=== PATIENT | male | born 1980 | race Caucasian/White ===

== ENCOUNTER 2016-05-06 09:14 | Inpatient (IN) | payer OTHER ==
[~2016-05-06] VITALS: Ht 177.8 cm; Wt 73.4 kg
[2016-05-06] VITALS (11 sets, daily range): BP systolic 111–144; BP diastolic 68–94
[2016-05-06] MEDS ORDERED: SODIUM CHLORIDE FLUSH 10ML SYR IVF ONE (10:30)
[2016-05-06 11:05] LABS: ASPARTATE AMINO TRANSFERASE 59 U/L (15-37); BLOOD UREA NITROGEN 15 mg/dL (7-18)
[2016-05-06 11:10] LABS: ACETAMINOPHEN < 2 mcg/mL (10-30)
[2016-05-06 11:17] LABS: HEMOGLOBIN 5.9 g/dL (13.7-18.0)
[2016-05-06 11:18] LABS: DIFF TOTAL CELLS COUNTED 100 CELL DIFF
[2016-05-06 11:40] LABS: VERIFY COUNTS? YES
[2016-05-06 11:42] LABS: ANISOCYTOSIS 1+; POLYCHROMASIA 1+; SPHEROCYTES 1+
[2016-05-06 12:33] LABS: DAU SCREEN DISCLAIMER
[2016-05-06] MEDS ORDERED: SODIUM CHLORIDE 0.9% 1,000ML IVBOLUS ONE (13:00)
[2016-05-06] MEDS ORDERED: SODIUM CHLORIDE FLUSH 10ML SYR IVF PRN (14:00)
[2016-05-06] MEDS: NICOTINE 21 MG/24 HR PATCH.TD24 TD SCH (19:48)
[2016-05-06 23:59] LABS: C-REACTIVE PROTEIN, QUANT 0.35 mg/dL (0.02-0.49)
[2016-05-07] VITALS (11 sets, daily range): BP systolic 100–125; BP diastolic 60–80
[2016-05-07 00:03] LABS: HEMOGLOBIN 6.9 g/dL (13.7-18.0)
[2016-05-07 00:17] LABS: HIV 1&2 ANTIBODY SCREEN Nonreactive (Nonreactive)
[2016-05-07 00:18] LABS: HIV-1 p24 ANTIGEN Nonreactive (Nonreactive)
[2016-05-07 00:31] LABS: DIFF TOTAL CELLS COUNTED 100 CELL DIFF
[2016-05-07 01:05] LABS: ANISOCYTOSIS 1+; HYPOCHROMIA 1+; POLYCHROMASIA 1+; STOMATOCYTES 1+
[2016-05-07 01:06] LABS: POIKILOCYTOSIS 1+
[2016-05-07 01:12] LABS: VERIFY COUNTS? YES
[2016-05-07 05:48] LABS: IMMUNOGLOBULIN A 205 mg/dL (90-386); IMMUNOGLOBULIN G 697 mg/dL (700-1600); IMMUNOGLOBULIN M 65 mg/dL (20-172)
[2016-05-07 05:54] LABS: HEMOGLOBIN 7.2 g/dL (13.7-18.0)
[2016-05-07 05:56] LABS: BLOOD UREA NITROGEN 12 mg/dL (7-18)
[2016-05-07 06:01] LABS: ASPARTATE AMINO TRANSFERASE 49 U/L (15-37)
[2016-05-07 06:33] LABS: DIFF TOTAL CELLS COUNTED 100 CELL DIFF
[2016-05-07 06:35] LABS: POLYCHROMASIA 1+; VERIFY COUNTS? YES
[2016-05-07 06:37] LABS: ANISOCYTOSIS 2+; HYPOCHROMIA 1+
[2016-05-07 06:38] LABS: SPHEROCYTES 1+
[2016-05-07 06:39] LABS: MICROCYTOSIS 1+
[2016-05-07] MEDS ORDERED: LIDOCAINE 1%, 20ML ONE (10:01)
[2016-05-07] MEDS ORDERED: NALOXONE 1 MG/ML, 2ML ONE (10:08)
[2016-05-07] MEDS ORDERED: MIDAZOLAM 1 MG/ML, 5ML ONE (10:08)
[2016-05-07] MEDS ORDERED: FENTANYL PF 100 MCG/2ML ONE (10:08)
[2016-05-07] MEDS: NICOTINE 21 MG/24 HR PATCH.TD24 TD SCH (21:32)
[2016-05-08 02:22] VITALS: BP 97/61
[2016-05-08 05:07] LABS: HEMOGLOBIN 9.8 g/dL (13.7-18.0)
[2016-05-08 05:39] LABS: DIFF TOTAL CELLS COUNTED 100 CELL DIFF
[2016-05-08 05:45] LABS: VERIFY COUNTS? YES
[2016-05-08 05:46] LABS: ANISOCYTOSIS 2+; MICROCYTOSIS 1+; POLYCHROMASIA 1+; SPHEROCYTES 1+
[2016-05-08 07:41] VITALS: BP 98/67
[2016-05-08 12:32] VITALS: BP 121/77
[2016-05-08] MEDS: ALLOPURINOL 300 MG TABLET PO SCH (17:27)
[2016-05-08] MEDS: FLUCONAZOLE 100 MG TABLET PO SCH (17:27)
[2016-05-08] MEDS: SODIUM CHLORIDE 0.9% 1,000 ML IV SCH (17:28)
[2016-05-08 19:09] VITALS: BP 123/84
[2016-05-08] MEDS: CIPROFLOXACIN 500 MG TABLET PO SCH (19:55)
[2016-05-08] MEDS: ACYCLOVIR 400 MG TABLET PO SCH (19:55)
[2016-05-08] MEDS: NICOTINE 21 MG/24 HR PATCH.TD24 TD SCH (19:56)
[2016-05-09] MEDS: SODIUM CHLORIDE 0.9% 1,000 ML IV SCH ×3 (00:21→17:54)
[2016-05-09 01:16] LABS: HEPATITIS B SURFACE AG SCREEN Negative (Negative)
[2016-05-09 02:00] VITALS: BP 106/64
[2016-05-09 06:24] LABS: BLOOD UREA NITROGEN 12 mg/dL (7-18)
[2016-05-09 06:25] LABS: HEMOGLOBIN 9.8 g/dL (13.7-18.0)
[2016-05-09 06:27] LABS: ASPARTATE AMINO TRANSFERASE 25 U/L (15-37)
[2016-05-09 06:43] LABS: DIFF TOTAL CELLS COUNTED 100 CELL DIFF
[2016-05-09 06:48] LABS: VERIFY COUNTS? YES
[2016-05-09 06:49] LABS: ANISOCYTOSIS 2+; MICROCYTOSIS 1+; POLYCHROMASIA 1+
[2016-05-09 06:51] LABS: SPHEROCYTES 1+
[2016-05-09 06:55] VITALS: BP 116/84
[2016-05-09] MEDS: CIPROFLOXACIN 500 MG TABLET PO SCH ×2 (09:10→21:21)
[2016-05-09] MEDS: ACYCLOVIR 400 MG TABLET PO SCH ×2 (09:10→21:21)
[2016-05-09 13:00] VITALS: BP 119/78
[2016-05-09] MEDS ORDERED: LORazepam 2 MG/ML, 1ML ONE (14:47)
[2016-05-09] MEDS ORDERED: LORazepam 2 MG/ML, 1ML IVPush ONE (15:00)
[2016-05-09] MEDS ORDERED: GADOBUTROL 7.5 MMOL/7.5 ML PFS ONE (16:27)
[2016-05-09] MEDS: ALLOPURINOL 300 MG TABLET PO SCH (17:54)
[2016-05-09] MEDS: FLUCONAZOLE 100 MG TABLET PO SCH (17:54)
[2016-05-09 19:30] VITALS: BP 118/74
[2016-05-09] MEDS: NICOTINE 21 MG/24 HR PATCH.TD24 TD SCH (21:21)
[2016-05-10 01:21] VITALS: BP 105/66
[2016-05-10] MEDS: SODIUM CHLORIDE 0.9% 1,000 ML IV SCH ×3 (01:48→16:27)
[2016-05-10 05:53] LABS: HEMOGLOBIN 9.4 g/dL (13.7-18.0)
[2016-05-10 06:29] LABS: ASPARTATE AMINO TRANSFERASE 21 U/L (15-37); BLOOD UREA NITROGEN 13 mg/dL (7-18)
[2016-05-10 06:35] LABS: DIFF TOTAL CELLS COUNTED 100 CELL DIFF
[2016-05-10 06:44] LABS: VERIFY COUNTS? YES
[2016-05-10 06:46] LABS: ANISOCYTOSIS 2+; MICROCYTOSIS 1+; POLYCHROMASIA 1+; SPHEROCYTES 1+
[2016-05-10 07:10] VITALS: BP 103/67
[2016-05-10] MEDS: CIPROFLOXACIN 500 MG TABLET PO SCH ×2 (10:04→21:36)
[2016-05-10] MEDS: ACYCLOVIR 400 MG TABLET PO SCH ×2 (10:04→21:35)
[2016-05-10 13:25] VITALS: BP 110/76
[2016-05-10] MEDS ORDERED: FOSAPREPITANT 150 MG in SODIUM CHLORIDE 0.9% 145 ML IV ONE (15:30)
[2016-05-10] MEDS: ONDANSETRON 16 MG, DEXAMETHASONE 12 MG in DEXTROSE 5% 50 ML IV SCH (17:26)
[2016-05-10] MEDS: ALLOPURINOL 300 MG TABLET PO SCH (17:27)
[2016-05-10] MEDS: FLUCONAZOLE 100 MG TABLET PO SCH (17:27)
[2016-05-10] MEDS: IDARUBICIN IV SCH (18:37)
[2016-05-10] MEDS: SODIUM CHLORIDE 0.9% IV SCH ×2 (18:37→19:15)
[2016-05-10] MEDS: CYTARABINE IV SCH (19:15)
[2016-05-10 19:55] VITALS: BP 116/73
[2016-05-10] MEDS: NICOTINE 21 MG/24 HR PATCH.TD24 TD SCH (21:36)
[2016-05-11] MEDS: SODIUM CHLORIDE 0.9% 1,000 ML IV SCH ×3 (01:47→18:48)
[2016-05-11 03:39] VITALS: BP 105/73
[2016-05-11 03:40] LABS: ASPARTATE AMINO TRANSFERASE 21 U/L (15-37); BLOOD UREA NITROGEN 17 mg/dL (7-18)
[2016-05-11 04:09] LABS: HEMOGLOBIN 9.5 g/dL (13.7-18.0)
[2016-05-11 04:12] LABS: DIFF TOTAL CELLS COUNTED 100 CELL DIFF
[2016-05-11 04:17] LABS: VERIFY COUNTS? YES
[2016-05-11 04:18] LABS: ANISOCYTOSIS 2+; MICROCYTOSIS 1+; POLYCHROMASIA 1+; SPHEROCYTES 1+
[2016-05-11 07:26] VITALS: BP 98/63
[2016-05-11] MEDS: ACYCLOVIR 400 MG TABLET PO SCH ×2 (09:12→21:39)
[2016-05-11] MEDS: CIPROFLOXACIN 500 MG TABLET PO SCH ×2 (09:13→21:40)
[2016-05-11 13:19] VITALS: BP 108/74
[2016-05-11] MEDS: ONDANSETRON 16 MG, DEXAMETHASONE 12 MG in DEXTROSE 5% 50 ML IV SCH (16:27)
[2016-05-11] MEDS: FLUCONAZOLE 100 MG TABLET PO SCH (18:59)
[2016-05-11] MEDS: ALLOPURINOL 300 MG TABLET PO SCH (18:59)
[2016-05-11] MEDS: IDARUBICIN IV SCH (19:01)
[2016-05-11] MEDS: SODIUM CHLORIDE 0.9% IV SCH ×2 (19:01→19:40)
[2016-05-11 19:06] LABS: ANA DIRECT Negative (Negative); COMPLEMENT C3 100 mg/dL (82-167); COMPLEMENT C4 22 mg/dL (14-44); INTERMYOFIBRILLAR AB Negative (Neg:<1:20); MITOCHONDRIAL (M2) AB 2.1 Units (0.0-20.0); RA LATEX TURBIDITY <10.0 IU/mL (0.0-13.9); SARCOLEMMA AB Negative (Neg:<1:20); SJOGREN'S SS-A AB <0.2 AI (0.0-0.9); STRIATION AB Negative (Neg:<1:40); THYROID PEROXIDASE (TPO) AB 27 IU/mL (0-34)
[2016-05-11] MEDS: CYTARABINE IV SCH (19:40)
[2016-05-11 20:03] VITALS: BP 106/67
[2016-05-11] MEDS: AMOXICILLIN 500 MG CAPSULE PO SCH (21:39)
[2016-05-11] MEDS: NICOTINE 21 MG/24 HR PATCH.TD24 TD SCH (21:40)
[2016-05-11] MEDS ORDERED: BISACODYL 5 MG EC TABLET PO PRN (22:30)
[2016-05-12] MEDS: SODIUM CHLORIDE 0.9% 1,000 ML IV SCH ×3 (02:58→18:51)
[2016-05-12 03:31] VITALS: BP 109/71
[2016-05-12 03:48] LABS: HEMOGLOBIN 9.1 g/dL (13.7-18.0)
[2016-05-12 03:57] LABS: ASPARTATE AMINO TRANSFERASE 21 U/L (15-37); BLOOD UREA NITROGEN 18 mg/dL (7-18)
[2016-05-12 04:15] LABS: DIFF TOTAL CELLS COUNTED 100 CELL DIFF
[2016-05-12 04:18] LABS: VERIFY COUNTS? YES
[2016-05-12 04:19] LABS: ANISOCYTOSIS 2+; MICROCYTOSIS 1+; OVALOCYTES 1+; POLYCHROMASIA 1+
[2016-05-12 08:15] VITALS: BP 113/66
[2016-05-12] MEDS: AMOXICILLIN 500 MG CAPSULE PO SCH (08:49)
[2016-05-12] MEDS: ACYCLOVIR 400 MG TABLET PO SCH ×2 (08:50→21:59)
[2016-05-12] MEDS: SENNA/DOCUSATE TABLET PO SCH ×2 (08:50→21:00)
[2016-05-12] MEDS: CIPROFLOXACIN 500 MG TABLET PO SCH ×2 (08:50→22:00)
[2016-05-12 14:53] VITALS: BP 117/71
[2016-05-12] MEDS: CLINDAMYCIN 300 MG CAPSULE PO SCH (17:30)
[2016-05-12] MEDS: FLUCONAZOLE 100 MG TABLET PO SCH (18:06)
[2016-05-12] MEDS: PANTOPROZOLE 40MG TABLET PO SCH (18:07)
[2016-05-12] MEDS: ALLOPURINOL 300 MG TABLET PO SCH (18:07)
[2016-05-12 19:00] VITALS: BP 123/85
[2016-05-12] MEDS: ONDANSETRON 16 MG, DEXAMETHASONE 12 MG in DEXTROSE 5% 50 ML IV SCH (19:36)
[2016-05-12] MEDS: SODIUM CHLORIDE 0.9% IV SCH ×2 (21:48→22:19)
[2016-05-12] MEDS: IDARUBICIN IV SCH (21:48)
[2016-05-12] MEDS: NICOTINE 21 MG/24 HR PATCH.TD24 TD SCH (22:01)
[2016-05-12] MEDS: CYTARABINE IV SCH (22:19)
[2016-05-13 02:37] VITALS: BP 122/85
[2016-05-13 03:34] LABS: HEMOGLOBIN 7.8 g/dL (13.7-18.0)
[2016-05-13 03:42] LABS: ASPARTATE AMINO TRANSFERASE 18 U/L (15-37); BLOOD UREA NITROGEN 23 mg/dL (7-18)
[2016-05-13 03:51] LABS: DIFF TOTAL CELLS COUNTED 100 CELL DIFF
[2016-05-13 03:57] LABS: ANISOCYTOSIS 2+; OVALOCYTES 1+; POIKILOCYTOSIS 1+; POLYCHROMASIA 1+
[2016-05-13 03:58] LABS: MICROCYTOSIS 1+
[2016-05-13 03:59] LABS: SPHEROCYTES 1+; VERIFY COUNTS? YES
[2016-05-13] MEDS: SODIUM CHLORIDE 0.9% 1,000 ML IV SCH ×3 (04:45→20:00)
[2016-05-13] MEDS: CLINDAMYCIN 300 MG CAPSULE PO SCH ×2 (05:30→17:30)
[2016-05-13 06:42] VITALS: BP 102/64
[2016-05-13] MEDS: CIPROFLOXACIN 500 MG TABLET PO SCH ×2 (08:43→21:17)
[2016-05-13] MEDS: SENNA/DOCUSATE TABLET PO SCH ×3 (08:43→21:17)
[2016-05-13] MEDS: PANTOPROZOLE 40MG TABLET PO SCH (08:43)
[2016-05-13] MEDS: ACYCLOVIR 400 MG TABLET PO SCH ×2 (08:44→21:17)
[2016-05-13 13:00] VITALS: BP 105/66
[2016-05-13] MEDS: ONDANSETRON 16 MG, DEXAMETHASONE 12 MG in DEXTROSE 5% 50 ML IV SCH (16:16)
[2016-05-13] MEDS: ALLOPURINOL 300 MG TABLET PO SCH (17:25)
[2016-05-13] MEDS: FLUCONAZOLE 100 MG TABLET PO SCH (17:25)
[2016-05-13 18:07] LABS: HERPES SIMPLEX VIRUS-1 DNA PCR Negative (Negative); HERPES SIMPLEX VIRUS-2 DNA PCR Negative (Negative)
[2016-05-13 19:20] VITALS: BP 107/61
[2016-05-13] MEDS: NICOTINE 21 MG/24 HR PATCH.TD24 TD SCH (22:54)
[2016-05-13] MEDS: CYTARABINE IV SCH (23:42)
[2016-05-13] MEDS: SODIUM CHLORIDE 0.9% IV SCH (23:42)
[2016-05-14 02:00] VITALS: BP 112/65
[2016-05-14 04:31] LABS: HEMOGLOBIN 7.3 g/dL (13.7-18.0)
[2016-05-14 04:36] LABS: BLOOD UREA NITROGEN 22 mg/dL (7-18)
[2016-05-14 04:40] LABS: ASPARTATE AMINO TRANSFERASE 12 U/L (15-37)
[2016-05-14 04:50] LABS: DIFF TOTAL CELLS COUNTED 100 CELL DIFF
[2016-05-14 04:54] LABS: ANISOCYTOSIS 2+
[2016-05-14 04:55] LABS: MICROCYTOSIS 1+; OVALOCYTES 1+; POIKILOCYTOSIS 1+; POLYCHROMASIA 1+; SPHEROCYTES 1+
[2016-05-14 04:57] LABS: VERIFY COUNTS? YES
[2016-05-14] MEDS: CLINDAMYCIN 300 MG CAPSULE PO SCH ×2 (05:30→17:30)
[2016-05-14] MEDS: SODIUM CHLORIDE 0.9% 1,000 ML IV SCH (05:30)
[2016-05-14 08:31] VITALS: BP 108/63
[2016-05-14] MEDS: SENNA/DOCUSATE TABLET PO SCH ×2 (09:00→21:00)
[2016-05-14] MEDS: CIPROFLOXACIN 500 MG TABLET PO SCH ×2 (09:16→21:27)
[2016-05-14] MEDS: ACYCLOVIR 400 MG TABLET PO SCH ×2 (09:16→21:26)
[2016-05-14] MEDS: PANTOPROZOLE 40MG TABLET PO SCH (09:16)
[2016-05-14 14:00] VITALS: BP 120/66
[2016-05-14] MEDS ORDERED: SODIUM CHLORIDE 0.9% 1,000 ML IV SCH (17:00)
[2016-05-14] MEDS: ONDANSETRON 16 MG, DEXAMETHASONE 12 MG in DEXTROSE 5% 50 ML IV SCH (18:16)
[2016-05-14] MEDS: ALLOPURINOL 300 MG TABLET PO SCH (19:28)
[2016-05-14] MEDS: FLUCONAZOLE 100 MG TABLET PO SCH (19:29)
[2016-05-14 19:52] VITALS: BP 109/68
[2016-05-14] MEDS: NICOTINE 21 MG/24 HR PATCH.TD24 TD SCH (21:26)
[2016-05-14] MEDS: SODIUM CHLORIDE 0.9% IV SCH (23:48)
[2016-05-14] MEDS: CYTARABINE IV SCH (23:48)
[2016-05-15] VITALS (12 sets, daily range): BP systolic 103–137; BP diastolic 60–83
[2016-05-15] MEDS: CLINDAMYCIN 300 MG CAPSULE PO SCH ×2 (04:57→17:30)
[2016-05-15 05:59] LABS: HEMOGLOBIN 6.6 g/dL (13.7-18.0)
[2016-05-15 06:00] LABS: ASPARTATE AMINO TRANSFERASE 21 U/L (15-37); BLOOD UREA NITROGEN 21 mg/dL (7-18)
[2016-05-15 06:40] LABS: DIFF TOTAL CELLS COUNTED 100 CELL DIFF
[2016-05-15 06:47] LABS: ANISOCYTOSIS 2+; VERIFY COUNTS? YES
[2016-05-15 06:48] LABS: MICROCYTOSIS 1+; OVALOCYTES 1+; POIKILOCYTOSIS 1+
[2016-05-15] MEDS ORDERED: DIPHENHYDRAMINE 50 MG CAPSULE PO PRN (07:00)
[2016-05-15] MEDS ORDERED: ACETAMINOPHEN 325 MG TABLET PO ONE (07:00)
[2016-05-15] MEDS: PANTOPROZOLE 40MG TABLET PO SCH (08:29)
[2016-05-15] MEDS: SENNA/DOCUSATE TABLET PO SCH ×2 (08:29→19:35)
[2016-05-15] MEDS: CIPROFLOXACIN 500 MG TABLET PO SCH ×2 (08:29→21:17)
[2016-05-15] MEDS: ACYCLOVIR 400 MG TABLET PO SCH ×2 (08:29→21:17)
[2016-05-15] MEDS: DIPHENHYDRAMINE 50 MG CAPSULE PO PRN (08:34)
[2016-05-15] MEDS ORDERED: PLEASE ENTER ALLERGIES MC SCH ×2 (12:30)
[2016-05-15] MEDS: FLUCONAZOLE 100 MG TABLET PO SCH (17:40)
[2016-05-15] MEDS: ALLOPURINOL 300 MG TABLET PO SCH (17:43)
[2016-05-15] MEDS: ONDANSETRON 16 MG, DEXAMETHASONE 12 MG in DEXTROSE 5% 50 ML IV SCH (18:24)
[2016-05-15] MEDS: NICOTINE 21 MG/24 HR PATCH.TD24 TD SCH (21:17)
[2016-05-16] MEDS: SODIUM CHLORIDE 0.9% IV SCH (00:15)
[2016-05-16] MEDS: CYTARABINE IV SCH (00:15)
[2016-05-16 04:47] VITALS: BP 109/66
[2016-05-16] MEDS: CLINDAMYCIN 300 MG CAPSULE PO SCH ×2 (05:06→17:30)
[2016-05-16 05:49] LABS: BLOOD UREA NITROGEN 20 mg/dL (7-18)
[2016-05-16 05:55] LABS: ASPARTATE AMINO TRANSFERASE 48 U/L (15-37); HEMOGLOBIN 8.2 g/dL (13.7-18.0)
[2016-05-16 06:33] LABS: DIFF TOTAL CELLS COUNTED 100 CELL DIFF
[2016-05-16 06:36] LABS: VERIFY COUNTS? YES
[2016-05-16 06:37] LABS: ANISOCYTOSIS 1+
[2016-05-16 06:38] LABS: MICROCYTOSIS 1+; OVALOCYTES 1+
[2016-05-16] MEDS: SENNA/DOCUSATE TABLET PO SCH ×2 (08:04→20:35)
[2016-05-16] MEDS: ACYCLOVIR 400 MG TABLET PO SCH ×2 (08:04→20:35)
[2016-05-16] MEDS: CIPROFLOXACIN 500 MG TABLET PO SCH ×2 (08:04→20:34)
[2016-05-16] MEDS: PANTOPROZOLE 40MG TABLET PO SCH (08:04)
[2016-05-16 08:25] VITALS: BP 128/77
[2016-05-16 15:08] VITALS: BP 114/69
[2016-05-16] MEDS: ALLOPURINOL 300 MG TABLET PO SCH (18:58)
[2016-05-16] MEDS: FLUCONAZOLE 100 MG TABLET PO SCH (19:00)
[2016-05-16 20:03] VITALS: BP 123/81
[2016-05-16] MEDS: LOPERAMIDE 2 MG CAPSULE PO PRN (20:14)
[2016-05-16] MEDS: NICOTINE 21 MG/24 HR PATCH.TD24 TD SCH (20:34)
[2016-05-16] MEDS: MORPHINE SULFATE 4 MG/ML, 1ML IVPush PRN (22:21)
[2016-05-16] MEDS: ONDANSETRON 16 MG, DEXAMETHASONE 12 MG in DEXTROSE 5% 50 ML IV SCH (22:41)
[2016-05-17] VITALS (7 sets, daily range): BP systolic 98–119; BP diastolic 56–77
[2016-05-17] MEDS: SODIUM CHLORIDE 0.9% IV SCH (00:50)
[2016-05-17] MEDS: CYTARABINE IV SCH (00:50)
[2016-05-17] MEDS: MORPHINE SULFATE 4 MG/ML, 1ML IVPush PRN (01:40)
[2016-05-17] MEDS: LOPERAMIDE 2 MG CAPSULE PO PRN ×2 (01:40→18:38)
[2016-05-17] MEDS: CLINDAMYCIN 300 MG CAPSULE PO SCH (05:22)
[2016-05-17 06:12] LABS: ASPARTATE AMINO TRANSFERASE 28 U/L (15-37); BLOOD UREA NITROGEN 21 mg/dL (7-18)
[2016-05-17 06:20] LABS: HEMOGLOBIN 7.9 g/dL (13.7-18.0)
[2016-05-17 07:30] LABS: DIFF TOTAL CELLS COUNTED 100 CELL DIFF
[2016-05-17 07:32] LABS: VERIFY COUNTS? YES
[2016-05-17 07:33] LABS: ANISOCYTOSIS 1+
[2016-05-17] MEDS: SENNA/DOCUSATE TABLET PO SCH ×2 (09:00→21:00)
[2016-05-17] MEDS: PANTOPROZOLE 40MG TABLET PO SCH (10:10)
[2016-05-17] MEDS: CIPROFLOXACIN 500 MG TABLET PO SCH ×2 (10:11→21:02)
[2016-05-17] MEDS: ACYCLOVIR 400 MG TABLET PO SCH ×2 (10:11→21:02)
[2016-05-17] MEDS: DIPHENHYDRAMINE 50 MG CAPSULE PO PRN (11:54)
[2016-05-17] MEDS: ACETAMINOPHEN 325 MG TABLET PO PRN (11:55)
[2016-05-17] MEDS: LACTOBACILLUS CHEW TABLET PO SCH ×3 (12:01→21:03)
[2016-05-17] MEDS: HYDROcodone/APAP 5/325 TABLET PO PRN ×2 (17:00→18:38)
[2016-05-17] MEDS: ALLOPURINOL 300 MG TABLET PO SCH (17:01)
[2016-05-17] MEDS: FLUCONAZOLE 100 MG TABLET PO SCH (17:01)
[2016-05-17] MEDS: NICOTINE 21 MG/24 HR PATCH.TD24 TD SCH (21:06)
[2016-05-18 02:30] VITALS: BP 115/68
[2016-05-18] MEDS: LOPERAMIDE 2 MG CAPSULE PO PRN (05:35)
[2016-05-18] MEDS: LACTOBACILLUS CHEW TABLET PO SCH ×4 (05:35→20:57)
[2016-05-18 05:59] LABS: ASPARTATE AMINO TRANSFERASE 70 U/L (15-37); BLOOD UREA NITROGEN 23 mg/dL (7-18)
[2016-05-18 06:10] LABS: HEMOGLOBIN 8.1 g/dL (13.7-18.0)
[2016-05-18 06:50] LABS: DIFF TOTAL CELLS COUNTED 100 CELL DIFF
[2016-05-18 06:56] LABS: ANISOCYTOSIS 1+
[2016-05-18 06:58] LABS: VERIFY COUNTS? YES
[2016-05-18] MEDS: HYDROcodone/APAP 5/325 TABLET PO PRN ×3 (07:23→20:57)
[2016-05-18] MEDS: PANTOPROZOLE 40MG TABLET PO SCH (07:45)
[2016-05-18] MEDS: CIPROFLOXACIN 500 MG TABLET PO SCH ×2 (07:46→20:57)
[2016-05-18] MEDS: SENNA/DOCUSATE TABLET PO SCH ×2 (07:46→22:15)
[2016-05-18] MEDS: ACYCLOVIR 400 MG TABLET PO SCH ×2 (07:47→20:57)
[2016-05-18 07:53] VITALS: BP 122/86
[2016-05-18 14:00] VITALS: BP 106/70
[2016-05-18] MEDS: ALLOPURINOL 300 MG TABLET PO SCH (17:38)
[2016-05-18] MEDS: FLUCONAZOLE 100 MG TABLET PO SCH (17:38)
[2016-05-18 20:40] VITALS: BP 113/76
[2016-05-18] MEDS: NICOTINE 21 MG/24 HR PATCH.TD24 TD SCH (20:57)
[2016-05-19] VITALS (16 sets, daily range): BP systolic 104–133; BP diastolic 66–86
[2016-05-19] MEDS: HYDROcodone/APAP 5/325 TABLET PO PRN (03:50)
[2016-05-19 04:27] LABS: HEMOGLOBIN 8.9 g/dL (13.7-18.0)
[2016-05-19 04:34] LABS: DIFF TOTAL CELLS COUNTED 100 CELL DIFF
[2016-05-19 04:38] LABS: ASPARTATE AMINO TRANSFERASE 45 U/L (15-37); BLOOD UREA NITROGEN 30 mg/dL (7-18)
[2016-05-19 04:54] LABS: VERIFY COUNTS? YES
[2016-05-19 04:55] LABS: ANISOCYTOSIS 1+
[2016-05-19 04:56] LABS: POIKILOCYTOSIS 1+
[2016-05-19] MEDS: LACTOBACILLUS CHEW TABLET PO SCH ×4 (04:57→20:44)
[2016-05-19] MEDS: CIPROFLOXACIN 500 MG TABLET PO SCH ×2 (08:27→20:44)
[2016-05-19] MEDS: ACYCLOVIR 400 MG TABLET PO SCH ×2 (08:27→20:44)
[2016-05-19] MEDS: SENNA/DOCUSATE TABLET PO SCH ×2 (08:28→20:47)
[2016-05-19] MEDS ORDERED: PANTOPRAZOLE 40 MG IV IVPush SCH (09:00)
[2016-05-19] MEDS: DIPHENHYDRAMINE 50 MG CAPSULE PO PRN ×2 (09:16→17:47)
[2016-05-19] MEDS: ACETAMINOPHEN 325 MG TABLET PO PRN ×2 (09:16→17:47)
[2016-05-19] MEDS: OXYcodone IR 5MG TABLET PO PRN ×4 (09:16→20:59)
[2016-05-19 10:50] LABS: DIFF TOTAL CELLS COUNTED 100 CELL DIFF
[2016-05-19 10:54] LABS: ANISOCYTOSIS 1+; VERIFY COUNTS? YES
[2016-05-19] MEDS: ALLOPURINOL 300 MG TABLET PO SCH (17:00)
[2016-05-19] MEDS: FLUCONAZOLE 100 MG TABLET PO SCH (17:00)
[2016-05-19] MEDS: METRONIDAZOLE PMX 500MG/100ML 100 ML IV SCH (17:00)
[2016-05-19 20:35] LABS: HEMOGLOBIN 7.8 g/dL (13.7-18.0)
[2016-05-19] MEDS: NICOTINE 21 MG/24 HR PATCH.TD24 TD SCH (20:44)
[2016-05-19 21:36] LABS: DIFF TOTAL CELLS COUNTED 100 CELL DIFF
[2016-05-19 21:42] LABS: ANISOCYTOSIS 1+; VERIFY COUNTS? YES
[2016-05-20] VITALS (10 sets, daily range): BP systolic 107–128; BP diastolic 64–84
[2016-05-20] MEDS: METRONIDAZOLE PMX 500MG/100ML 100 ML IV SCH ×2 (01:12→08:23)
[2016-05-20] MEDS: OXYcodone IR 5MG TABLET PO PRN ×4 (04:34→20:03)
[2016-05-20 05:06] LABS: HEMOGLOBIN 8.5 g/dL (13.7-18.0)
[2016-05-20 05:12] LABS: BLOOD UREA NITROGEN 19 mg/dL (7-18)
[2016-05-20 05:16] LABS: ASPARTATE AMINO TRANSFERASE 33 U/L (15-37)
[2016-05-20] MEDS: DIPHENHYDRAMINE 50 MG CAPSULE PO PRN (05:26)
[2016-05-20] MEDS: LACTOBACILLUS CHEW TABLET PO SCH ×4 (06:32→20:04)
[2016-05-20] MEDS: CIPROFLOXACIN 500 MG TABLET PO SCH (08:23)
[2016-05-20] MEDS: ACYCLOVIR 400 MG TABLET PO SCH ×2 (08:23→20:04)
[2016-05-20] MEDS: SENNA/DOCUSATE TABLET PO SCH ×3 (08:23→20:08)
[2016-05-20] MEDS: PANTOPROZOLE 40MG TABLET PO SCH (08:23)
[2016-05-20] MEDS: MEROPENEM 1 GM in SODIUM CHLORIDE 0.9% 100 ML IV SCH ×2 (10:24→16:50)
[2016-05-20] MEDS: FLUCONAZOLE 400 MG/200 ML 200 ML IV SCH (12:22)
[2016-05-20 12:52] LABS: HEMOGLOBIN 8.1 g/dL (13.7-18.0)
[2016-05-20] MEDS: ALLOPURINOL 300 MG TABLET PO SCH (16:28)
[2016-05-20] MEDS: NICOTINE 21 MG/24 HR PATCH.TD24 TD SCH (20:04)
[2016-05-20 20:59] LABS: DIFF TOTAL CELLS COUNTED 100 CELL DIFF
[2016-05-20 21:04] LABS: ANISOCYTOSIS 1+
[2016-05-20 21:05] LABS: VERIFY COUNTS? YES
[2016-05-21] VITALS (10 sets, daily range): BP systolic 105–119; BP diastolic 66–79
[2016-05-21] MEDS: MEROPENEM 1 GM in SODIUM CHLORIDE 0.9% 100 ML IV SCH ×3 (02:08→18:30)
[2016-05-21] MEDS: OXYcodone IR 5MG TABLET PO PRN ×5 (02:09→20:05)
[2016-05-21] MEDS: LACTOBACILLUS CHEW TABLET PO SCH ×4 (05:06→20:05)
[2016-05-21 05:25] LABS: HEMOGLOBIN 7.5 g/dL (13.7-18.0)
[2016-05-21 05:32] LABS: BLOOD UREA NITROGEN 14 mg/dL (7-18)
[2016-05-21 05:39] LABS: ASPARTATE AMINO TRANSFERASE 17 U/L (15-37)
[2016-05-21 05:54] LABS: DIFF TOTAL CELLS COUNTED 100 CELL DIFF
[2016-05-21 05:59] LABS: ANISOCYTOSIS 1+; VERIFY COUNTS? YES
[2016-05-21] MEDS: ONDANSETRON 2MG/ML, 2ML IVP PRN ×2 (08:50→15:52)
[2016-05-21] MEDS: PANTOPROZOLE 40MG TABLET PO SCH (08:50)
[2016-05-21] MEDS: ACYCLOVIR 400 MG TABLET PO SCH ×2 (08:50→20:05)
[2016-05-21] MEDS: HYDROCORTISONE 100 MG INJ. IVPush SCH (08:51)
[2016-05-21] MEDS: DIPHENHYDRAMINE 50 MG CAPSULE PO PRN (08:51)
[2016-05-21] MEDS: SENNA/DOCUSATE TABLET PO SCH ×2 (08:51→19:52)
[2016-05-21] MEDS: ACETAMINOPHEN 325 MG TABLET PO PRN (08:51)
[2016-05-21] MEDS: ALLOPURINOL 300 MG TABLET PO SCH (16:16)
[2016-05-21] MEDS: FLUCONAZOLE 400 MG/200 ML 200 ML IV SCH (16:17)
[2016-05-21] MEDS: NICOTINE 21 MG/24 HR PATCH.TD24 TD SCH (20:05)
[2016-05-21 21:46] LABS: HEMOGLOBIN 8.5 g/dL (13.7-18.0)
[2016-05-21 22:19] LABS: DIFF TOTAL CELLS COUNTED 100 CELL DIFF
[2016-05-21 22:29] LABS: ANISOCYTOSIS 1+; VERIFY COUNTS? YES
[2016-05-22] VITALS (10 sets, daily range): BP systolic 104–118; BP diastolic 72–80
[2016-05-22] MEDS: MEROPENEM 1 GM in SODIUM CHLORIDE 0.9% 100 ML IV SCH ×3 (01:53→17:09)
[2016-05-22] MEDS: ONDANSETRON 2MG/ML, 2ML IVP PRN ×3 (05:29→18:17)
[2016-05-22] MEDS: LACTOBACILLUS CHEW TABLET PO SCH ×4 (05:29→21:55)
[2016-05-22] MEDS: OXYcodone IR 5MG TABLET PO PRN ×5 (05:29→22:43)
[2016-05-22] MEDS: ACYCLOVIR 400 MG TABLET PO SCH ×2 (08:50→21:55)
[2016-05-22] MEDS: SENNA/DOCUSATE TABLET PO SCH ×2 (08:50→21:00)
[2016-05-22] MEDS: PANTOPROZOLE 40MG TABLET PO SCH (08:50)
[2016-05-22 09:53] LABS: ASPARTATE AMINO TRANSFERASE 27 U/L (15-37); BLOOD UREA NITROGEN 17 mg/dL (7-18)
[2016-05-22 10:33] LABS: HEMOGLOBIN 8.8 g/dL (13.7-18.0)
[2016-05-22 10:39] LABS: ANISOCYTOSIS 1+; DIFF TOTAL CELLS COUNTED 50 CELL DIFFERENTIAL; VERIFY COUNTS? YES
[2016-05-22] MEDS: FLUCONAZOLE 400 MG/200 ML 200 ML IV SCH (12:07)
[2016-05-22] MEDS: ALLOPURINOL 300 MG TABLET PO SCH (16:02)
[2016-05-22 17:57] LABS: HEMOGLOBIN 8.6 g/dL (13.7-18.0)
[2016-05-22] MEDS: NICOTINE 21 MG/24 HR PATCH.TD24 TD SCH (21:55)
[2016-05-22] MEDS: ACETAMINOPHEN 325 MG TABLET PO PRN (21:55)
[2016-05-22] MEDS: DIPHENHYDRAMINE 50 MG CAPSULE PO PRN (21:55)
[2016-05-23] MEDS: MEROPENEM 1 GM in SODIUM CHLORIDE 0.9% 100 ML IV SCH ×3 (01:16→16:35)
[2016-05-23 05:07] VITALS: BP 108/69
[2016-05-23] MEDS: LACTOBACILLUS CHEW TABLET PO SCH ×4 (05:10→21:36)
[2016-05-23 06:58] LABS: DIFF TOTAL CELLS COUNTED 100 CELL DIFF
[2016-05-23 07:01] LABS: ANISOCYTOSIS 1+; VERIFY COUNTS? YES
[2016-05-23] MEDS: ONDANSETRON 2MG/ML, 2ML IVP PRN (07:14)
[2016-05-23] MEDS: OXYcodone IR 5MG TABLET PO PRN ×2 (07:14→14:57)
[2016-05-23] MEDS: ACYCLOVIR 400 MG TABLET PO SCH ×2 (08:00→21:36)
[2016-05-23] MEDS: PANTOPROZOLE 40MG TABLET PO SCH (08:00)
[2016-05-23] MEDS: SENNA/DOCUSATE TABLET PO SCH ×3 (08:01→21:36)
[2016-05-23 08:37] VITALS: BP 122/80
[2016-05-23 12:56] VITALS: BP 125/89
[2016-05-23] MEDS: FLUCONAZOLE 400 MG/200 ML 200 ML IV SCH (13:27)
[2016-05-23] MEDS: ALLOPURINOL 300 MG TABLET PO SCH (16:35)
[2016-05-23 20:32] VITALS: BP 110/78
[2016-05-23] MEDS: NICOTINE 21 MG/24 HR PATCH.TD24 TD SCH (21:38)
[2016-05-24] VITALS (7 sets, daily range): BP systolic 101–111; BP diastolic 67–81
[2016-05-24] MEDS: MEROPENEM 1 GM in SODIUM CHLORIDE 0.9% 100 ML IV SCH ×3 (02:32→17:44)
[2016-05-24] MEDS: OXYcodone IR 5MG TABLET PO PRN ×4 (06:22→20:34)
[2016-05-24] MEDS: LACTOBACILLUS CHEW TABLET PO SCH ×4 (06:22→20:35)
[2016-05-24] MEDS: PANTOPROZOLE 40MG TABLET PO SCH (08:32)
[2016-05-24] MEDS: SENNA/DOCUSATE TABLET PO SCH ×2 (08:33→19:43)
[2016-05-24] MEDS: ACYCLOVIR 400 MG TABLET PO SCH ×2 (08:33→20:34)
[2016-05-24] MEDS: DIPHENHYDRAMINE 50 MG CAPSULE PO PRN (08:51)
[2016-05-24] MEDS: HYDROCORTISONE 100 MG INJ. IVPush SCH (08:52)
[2016-05-24] MEDS: ONDANSETRON 2MG/ML, 2ML IVP PRN ×2 (08:52→17:44)
[2016-05-24] MEDS: ACETAMINOPHEN 325 MG TABLET PO PRN (08:52)
[2016-05-24] MEDS: FLUCONAZOLE 400 MG/200 ML 200 ML IV SCH ×2 (12:26→12:31)
[2016-05-24] MEDS: ALLOPURINOL 300 MG TABLET PO SCH (16:34)
[2016-05-24] MEDS: NICOTINE 21 MG/24 HR PATCH.TD24 TD SCH (20:35)
[2016-05-25] VITALS (10 sets, daily range): BP systolic 103–123; BP diastolic 65–72
[2016-05-25] MEDS: MEROPENEM 1 GM in SODIUM CHLORIDE 0.9% 100 ML IV SCH ×3 (01:30→22:30)
[2016-05-25 04:22] LABS: HEMOGLOBIN 8.3 g/dL (13.7-18.0)
[2016-05-25 04:23] LABS: ASPARTATE AMINO TRANSFERASE 20 U/L (15-37); BLOOD UREA NITROGEN 18 mg/dL (7-18)
[2016-05-25] MEDS: ACETAMINOPHEN 325 MG TABLET PO PRN (04:47)
[2016-05-25] MEDS: HYDROCORTISONE 100 MG INJ. IVPush SCH (04:47)
[2016-05-25] MEDS: DIPHENHYDRAMINE 50 MG CAPSULE PO PRN (04:50)
[2016-05-25] MEDS: LACTOBACILLUS CHEW TABLET PO SCH ×4 (05:12→21:58)
[2016-05-25] MEDS: OXYcodone IR 5MG TABLET PO PRN ×3 (05:44→18:14)
[2016-05-25] MEDS: ONDANSETRON 2MG/ML, 2ML IVP PRN ×4 (05:44→22:08)
[2016-05-25] MEDS ORDERED: LIDOCAINE 1%, 20ML ONE (10:19)
[2016-05-25] MEDS ORDERED: FENTANYL PF 100 MCG/2ML ONE (10:40)
[2016-05-25] MEDS ORDERED: MIDAZOLAM 1 MG/ML, 5ML ONE (10:40)
[2016-05-25] MEDS: FLUCONAZOLE 400 MG/200 ML 200 ML IV SCH (11:57)
[2016-05-25] MEDS: SENNA/DOCUSATE TABLET PO SCH ×2 (11:59→21:00)
[2016-05-25] MEDS: PANTOPROZOLE 40MG TABLET PO SCH (13:00)
[2016-05-25] MEDS: ACYCLOVIR 400 MG TABLET PO SCH ×2 (13:00→21:58)
[2016-05-25] MEDS ORDERED: POTASSIUM CHLORIDE 20 MEQ TAB.ER.PRT PO SCH (17:00)
[2016-05-25] MEDS: POTASSIUM CHLORIDE 20 MEQ TAB.ER.PRT PO SCH (18:11)
[2016-05-25] MEDS: ALLOPURINOL 300 MG TABLET PO SCH (18:11)
[2016-05-25] MEDS: NICOTINE 21 MG/24 HR PATCH.TD24 TD SCH (21:59)
[2016-05-26] VITALS (14 sets, daily range): BP systolic 108–117; BP diastolic 69–79
[2016-05-26] MEDS: MEROPENEM 1 GM in SODIUM CHLORIDE 0.9% 100 ML IV SCH ×3 (04:00→21:39)
[2016-05-26] MEDS: OXYcodone IR 5MG TABLET PO PRN ×5 (04:00→21:39)
[2016-05-26] MEDS: ONDANSETRON 2MG/ML, 2ML IVP PRN ×3 (04:01→16:29)
[2016-05-26 05:26] LABS: HEMOGLOBIN 6.9 g/dL (13.7-18.0)
[2016-05-26] MEDS: LACTOBACILLUS CHEW TABLET PO SCH ×4 (05:39→21:39)
[2016-05-26 06:46] LABS: HEMOGLOBIN 6.8 g/dL (13.7-18.0)
[2016-05-26] MEDS: SENNA/DOCUSATE TABLET PO SCH ×2 (07:43→21:00)
[2016-05-26] MEDS: ACYCLOVIR 400 MG TABLET PO SCH ×2 (07:43→21:39)
[2016-05-26] MEDS: POTASSIUM CHLORIDE 20 MEQ TAB.ER.PRT PO SCH (07:43)
[2016-05-26] MEDS: PANTOPROZOLE 40MG TABLET PO SCH (07:43)
[2016-05-26] MEDS: HYDROCORTISONE 100 MG INJ. IVPush SCH (08:56)
[2016-05-26] MEDS: DIPHENHYDRAMINE 50 MG CAPSULE PO PRN (08:56)
[2016-05-26] MEDS: ACETAMINOPHEN 325 MG TABLET PO PRN (08:56)
[2016-05-26] MEDS: ALLOPURINOL 300 MG TABLET PO SCH (17:22)
[2016-05-26] MEDS: NICOTINE 21 MG/24 HR PATCH.TD24 TD SCH (21:40)
[2016-05-26] MEDS: LOPERAMIDE 2 MG CAPSULE PO PRN (21:40)
[2016-05-26] MEDS: FLUCONAZOLE 400 MG/200 ML 200 ML IV SCH (22:45)
[2016-05-27] VITALS (8 sets, daily range): BP systolic 102–116; BP diastolic 68–80
[2016-05-27] MEDS: ONDANSETRON 2MG/ML, 2ML IVP PRN ×3 (04:55→23:23)
[2016-05-27] MEDS: OXYcodone IR 5MG TABLET PO PRN ×4 (04:55→21:54)
[2016-05-27] MEDS: MEROPENEM 1 GM in SODIUM CHLORIDE 0.9% 100 ML IV SCH ×2 (05:13→18:48)
[2016-05-27] MEDS: LOPERAMIDE 2 MG CAPSULE PO PRN ×3 (05:14→17:39)
[2016-05-27] MEDS: LACTOBACILLUS CHEW TABLET PO SCH ×4 (05:46→21:50)
[2016-05-27] MEDS ORDERED: CATHFLO-ALTEPLASE 2 MG/2 ML CATHFLUSH ONE (06:00)
[2016-05-27 06:54] LABS: HEMOGLOBIN 8.5 g/dL (13.7-18.0)
[2016-05-27 07:03] LABS: BLOOD UREA NITROGEN 15 mg/dL (7-18)
[2016-05-27] MEDS: SENNA/DOCUSATE TABLET PO SCH ×2 (09:00→21:00)
[2016-05-27] MEDS: ACYCLOVIR 400 MG TABLET PO SCH ×2 (09:31→21:50)
[2016-05-27] MEDS: PANTOPROZOLE 40MG TABLET PO SCH (09:31)
[2016-05-27] MEDS: POTASSIUM CHLORIDE 20 MEQ TAB.ER.PRT PO SCH ×3 (09:32→21:50)
[2016-05-27] MEDS ORDERED: MAGNESIUM SULFATE PMX 2GM/50ML 50 ML IV ONE (11:00)
[2016-05-27] MEDS: PROCHLORPERAZINE 5 MG/ML, 2ML IV PRN (12:46)
[2016-05-27] MEDS: HYDROCORTISONE 100 MG INJ. IVPush SCH (15:02)
[2016-05-27] MEDS: DIPHENHYDRAMINE 50 MG CAPSULE PO PRN (15:02)
[2016-05-27] MEDS: ACETAMINOPHEN 325 MG TABLET PO PRN (15:02)
[2016-05-27] MEDS: ALLOPURINOL 300 MG TABLET PO SCH (17:39)
[2016-05-27] MEDS: TBO-FILGRASTIM 480 MCG/0.8 ML SQ SCH (18:10)
[2016-05-27] MEDS: NICOTINE 21 MG/24 HR PATCH.TD24 TD SCH (21:50)
[2016-05-27] MEDS: FLUCONAZOLE 400 MG/200 ML 200 ML IV SCH (23:23)
[2016-05-28] VITALS (13 sets, daily range): BP systolic 107–120; BP diastolic 69–84
[2016-05-28] MEDS: MEROPENEM 1 GM in SODIUM CHLORIDE 0.9% 100 ML IV SCH ×3 (02:12→18:30)
[2016-05-28] MEDS: OXYcodone IR 5MG TABLET PO PRN ×6 (02:12→22:40)
[2016-05-28] MEDS: LOPERAMIDE 2 MG CAPSULE PO PRN ×2 (02:17→14:26)
[2016-05-28] MEDS: PROCHLORPERAZINE 5 MG/ML, 2ML IV PRN ×4 (04:35→23:39)
[2016-05-28 04:44] LABS: HEMOGLOBIN 7.4 g/dL (13.7-18.0)
[2016-05-28 04:53] LABS: BLOOD UREA NITROGEN 13 mg/dL (7-18)
[2016-05-28] MEDS: LACTOBACILLUS CHEW TABLET PO SCH ×4 (06:11→21:37)
[2016-05-28] MEDS: ACETAMINOPHEN 325 MG TABLET PO PRN ×2 (06:11→16:20)
[2016-05-28] MEDS: ONDANSETRON 2MG/ML, 2ML IVP PRN ×3 (06:11→20:34)
[2016-05-28] MEDS ORDERED: POTASSIUM CHLORIDE 20 MEQ TAB.ER.PRT PO SCH (09:30)
[2016-05-28] MEDS: SENNA/DOCUSATE TABLET PO SCH ×2 (09:48→21:00)
[2016-05-28] MEDS: HYDROCORTISONE 100 MG INJ. IVPush SCH (09:48)
[2016-05-28] MEDS: TBO-FILGRASTIM 480 MCG/0.8 ML SQ SCH (09:48)
[2016-05-28] MEDS: ACYCLOVIR 400 MG TABLET PO SCH ×2 (09:48→21:37)
[2016-05-28] MEDS: PANTOPROZOLE 40MG TABLET PO SCH (09:49)
[2016-05-28] MEDS: VANCOMYCIN 1,200 MG in SODIUM CHLORIDE 0.9% 250 ML IV SCH ×2 (10:57→21:37)
[2016-05-28] MEDS: POTASSIUM CHLORIDE 40 MEQ in SODIUM CHLORIDE 0.9% 100 ML IV SCH ×2 (13:30→18:30)
[2016-05-28] MEDS: MICAFUNGIN 100 MG in SODIUM CHLORIDE 0.9% 100 ML IV SCH (15:29)
[2016-05-28] MEDS: ALLOPURINOL 300 MG TABLET PO SCH (16:20)
[2016-05-28] MEDS: DIPHENHYDRAMINE 50 MG CAPSULE PO PRN (16:21)
[2016-05-28] MEDS: SODIUM CHLORIDE 0.9% 1,000 ML IV SCH (20:53)
[2016-05-28] MEDS: DIPHENOXYLATE/ATROPINE TABLET PO SCH (21:37)
[2016-05-28] MEDS: NICOTINE 21 MG/24 HR PATCH.TD24 TD SCH (21:38)
[2016-05-29] VITALS (12 sets, daily range): BP systolic 110–121; BP diastolic 76–82
[2016-05-29] MEDS: POTASSIUM CHLORIDE 40 MEQ in SODIUM CHLORIDE 0.9% 100 ML IV SCH ×3 (00:10→23:44)
[2016-05-29] MEDS: ONDANSETRON 2MG/ML, 2ML IVP PRN ×4 (02:36→22:25)
[2016-05-29] MEDS: MEROPENEM 1 GM in SODIUM CHLORIDE 0.9% 100 ML IV SCH ×2 (02:36→10:41)
[2016-05-29] MEDS: OXYcodone IR 5MG TABLET PO PRN ×5 (02:36→19:37)
[2016-05-29] MEDS: ACETAMINOPHEN 325 MG TABLET PO PRN ×2 (03:47→11:55)
[2016-05-29] MEDS: CIPROFLOXACIN/PMX 400MG/200ML 200 ML IV SCH ×3 (03:47→21:45)
[2016-05-29] MEDS: PROCHLORPERAZINE 5 MG/ML, 2ML IV PRN ×3 (05:41→18:01)
[2016-05-29] MEDS: LACTOBACILLUS CHEW TABLET PO SCH ×4 (05:41→23:45)
[2016-05-29] MEDS: SODIUM CHLORIDE 0.9% 1,000 ML IV SCH ×2 (05:41→15:00)
[2016-05-29 05:50] LABS: ASPARTATE AMINO TRANSFERASE 5 U/L (15-37); BLOOD UREA NITROGEN 12 mg/dL (7-18)
[2016-05-29 06:03] LABS: HEMOGLOBIN 7.9 g/dL (13.7-18.0)
[2016-05-29 06:49] LABS: DIFF TOTAL CELLS COUNTED 100 CELL DIFF
[2016-05-29 07:08] LABS: VERIFY COUNTS? YES
[2016-05-29 07:09] LABS: ANISOCYTOSIS 1+
[2016-05-29] MEDS: PANTOPROZOLE 40MG TABLET PO SCH (07:17)
[2016-05-29] MEDS: SENNA/DOCUSATE TABLET PO SCH ×2 (08:32→20:50)
[2016-05-29] MEDS: VANCOMYCIN 1,200 MG in SODIUM CHLORIDE 0.9% 250 ML IV SCH ×2 (08:33→23:15)
[2016-05-29] MEDS: ACYCLOVIR 400 MG TABLET PO SCH ×2 (08:41→20:49)
[2016-05-29] MEDS: DIPHENOXYLATE/ATROPINE TABLET PO SCH ×2 (08:43→23:45)
[2016-05-29] MEDS ORDERED: POTASSIUM PHOSPHATE 44 MEQ in SODIUM CHLORIDE 0.9% 500 ML IV ONE (09:00)
[2016-05-29] MEDS ORDERED: MAGNESIUM SULFATE PMX 2GM/50ML 50 ML IV ONE (09:00)
[2016-05-29] MEDS: TBO-FILGRASTIM 480 MCG/0.8 ML SQ SCH (10:42)
[2016-05-29] MEDS: DIPHENHYDRAMINE 50 MG CAPSULE PO PRN (11:55)
[2016-05-29] MEDS: LOPERAMIDE 2 MG CAPSULE PO PRN (20:49)
[2016-05-29] MEDS: NICOTINE 21 MG/24 HR PATCH.TD24 TD SCH (20:50)
[2016-05-29] MEDS: ALLOPURINOL 300 MG TABLET PO SCH (23:45)
[2016-05-30] VITALS (7 sets, daily range): BP systolic 112–126; BP diastolic 76–84
[2016-05-30] MEDS: OXYcodone IR 5MG TABLET PO PRN ×6 (00:12→21:24)
[2016-05-30] MEDS: MICAFUNGIN 100 MG in SODIUM CHLORIDE 0.9% 100 ML IV SCH (01:11)
[2016-05-30] MEDS: MEROPENEM 1 GM in SODIUM CHLORIDE 0.9% 100 ML IV SCH ×4 (02:00→18:25)
[2016-05-30] MEDS: PROCHLORPERAZINE 5 MG/ML, 2ML IV PRN ×3 (02:48→21:24)
[2016-05-30 03:24] LABS: HEMOGLOBIN 8.9 g/dL (13.7-18.0)
[2016-05-30 04:04] LABS: DIFF TOTAL CELLS COUNTED 50 CELL DIFFERENTIAL
[2016-05-30 04:05] LABS: ANISOCYTOSIS 1+
[2016-05-30 04:06] LABS: VERIFY COUNTS? YES
[2016-05-30] MEDS: CIPROFLOXACIN/PMX 400MG/200ML 200 ML IV SCH ×3 (05:02→20:28)
[2016-05-30] MEDS: ONDANSETRON 2MG/ML, 2ML IVP PRN ×4 (05:02→23:27)
[2016-05-30] MEDS: LACTOBACILLUS CHEW TABLET PO SCH ×4 (05:02→20:27)
[2016-05-30] MEDS: POTASSIUM CHLORIDE 40 MEQ in SODIUM CHLORIDE 0.9% 100 ML IV SCH (05:02)
[2016-05-30 06:19] LABS: BLOOD UREA NITROGEN 6 mg/dL (7-18)
[2016-05-30 06:23] LABS: ASPARTATE AMINO TRANSFERASE 12 U/L (15-37)
[2016-05-30] MEDS ORDERED: POTASSIUM PHOSPHATE 44 MEQ in SODIUM CHLORIDE 0.9% 500 ML IV ONE (07:30)
[2016-05-30] MEDS: POTASSIUM CHLORIDE 40 MEQ in SODIUM CHLORIDE 0.9% 500 ML IV SCH ×3 (08:05→20:29)
[2016-05-30] MEDS: VANCOMYCIN 2,000 MG in SODIUM CHLORIDE 0.9% 500 ML IV SCH ×2 (08:05→22:19)
[2016-05-30] MEDS: ACYCLOVIR 400 MG TABLET PO SCH ×2 (08:06→20:27)
[2016-05-30] MEDS: DIPHENOXYLATE/ATROPINE TABLET PO SCH ×2 (08:06→21:00)
[2016-05-30] MEDS: PANTOPROZOLE 40MG TABLET PO SCH (08:06)
[2016-05-30] MEDS: SENNA/DOCUSATE TABLET PO SCH ×2 (09:29→21:00)
[2016-05-30] MEDS: TBO-FILGRASTIM 480 MCG/0.8 ML SQ SCH (09:29)
[2016-05-30] MEDS: SODIUM CHLORIDE 0.9% 1,000 ML IV SCH ×2 (09:29→16:15)
[2016-05-30] MEDS: DIPHENHYDRAMINE 50 MG CAPSULE PO PRN (12:10)
[2016-05-30] MEDS: ALLOPURINOL 300 MG TABLET PO SCH (16:14)
[2016-05-30] MEDS: LOPERAMIDE 2 MG CAPSULE PO PRN (20:28)
[2016-05-30] MEDS: NICOTINE 21 MG/24 HR PATCH.TD24 TD SCH (20:28)
[2016-05-31] VITALS (7 sets, daily range): BP systolic 116–126; BP diastolic 78–91
[2016-05-31] MEDS: MICAFUNGIN 100 MG in SODIUM CHLORIDE 0.9% 100 ML IV SCH (01:26)
[2016-05-31] MEDS: OXYcodone IR 5MG TABLET PO PRN ×6 (01:26→22:33)
[2016-05-31] MEDS: MEROPENEM 1 GM in SODIUM CHLORIDE 0.9% 100 ML IV SCH ×3 (03:27→20:19)
[2016-05-31] MEDS: PROCHLORPERAZINE 5 MG/ML, 2ML IV PRN ×4 (03:30→22:33)
[2016-05-31] MEDS: LACTOBACILLUS CHEW TABLET PO SCH ×5 (03:30→21:43)
[2016-05-31] MEDS: CIPROFLOXACIN/PMX 400MG/200ML 200 ML IV SCH (03:54)
[2016-05-31] MEDS: SODIUM CHLORIDE 0.9% 1,000 ML IV SCH (04:00)
[2016-05-31 04:10] LABS: HEMOGLOBIN 8.4 g/dL (13.7-18.0)
[2016-05-31 04:13] LABS: BLOOD UREA NITROGEN 6 mg/dL (7-18)
[2016-05-31 04:37] LABS: DIFF TOTAL CELLS COUNTED 100 CELL DIFF
[2016-05-31 04:43] LABS: VERIFY COUNTS? YES
[2016-05-31 04:44] LABS: ANISOCYTOSIS 1+; MICROCYTOSIS 1+
[2016-05-31 04:45] LABS: OVALOCYTES 1+
[2016-05-31] MEDS: ONDANSETRON 2MG/ML, 2ML IVP PRN ×3 (05:39→18:12)
[2016-05-31] MEDS: SENNA/DOCUSATE TABLET PO SCH ×2 (09:00→21:43)
[2016-05-31] MEDS: PANTOPROZOLE 40MG TABLET PO SCH (09:53)
[2016-05-31] MEDS: ACYCLOVIR 400 MG TABLET PO SCH ×2 (09:53→21:35)
[2016-05-31] MEDS: VANCOMYCIN 2,000 MG in SODIUM CHLORIDE 0.9% 500 ML IV SCH ×2 (09:54→21:35)
[2016-05-31] MEDS: TBO-FILGRASTIM 480 MCG/0.8 ML SQ SCH (09:54)
[2016-05-31] MEDS: DIPHENOXYLATE/ATROPINE TABLET PO SCH ×2 (09:54→21:36)
[2016-05-31] MEDS: DIPHENHYDRAMINE 50 MG CAPSULE PO PRN (11:32)
[2016-05-31] MEDS: ACETAMINOPHEN 325 MG TABLET PO PRN (11:32)
[2016-05-31] MEDS ORDERED: POTASSIUM PHOSPHATE 44 MEQ in SODIUM CHLORIDE 0.9% 500 ML IV ONE (15:30)
[2016-05-31] MEDS ORDERED: MAGNESIUM SULFATE PMX 4GM/100M 100 ML IV ONE (15:30)
[2016-05-31] MEDS: ALLOPURINOL 300 MG TABLET PO SCH (18:11)
[2016-05-31] MEDS: LOPERAMIDE 2 MG CAPSULE PO PRN (21:35)
[2016-05-31] MEDS: DRONABINOL 5 MG CAPSULE PO SCH (21:35)
[2016-05-31] MEDS: NICOTINE 21 MG/24 HR PATCH.TD24 TD SCH (21:36)
[2016-06-01] MEDS: ONDANSETRON 2MG/ML, 2ML IVP PRN ×4 (01:52→18:08)
[2016-06-01] MEDS: MICAFUNGIN 100 MG in SODIUM CHLORIDE 0.9% 100 ML IV SCH (01:52)
[2016-06-01] MEDS: OXYcodone IR 5MG TABLET PO PRN ×5 (03:43→21:53)
[2016-06-01] MEDS: MEROPENEM 1 GM in SODIUM CHLORIDE 0.9% 100 ML IV SCH ×3 (03:43→19:57)
[2016-06-01 03:52] VITALS: BP 116/82
[2016-06-01 03:52] LABS: HEMOGLOBIN 9.4 g/dL (13.7-18.0)
[2016-06-01 04:01] LABS: ASPARTATE AMINO TRANSFERASE 25 U/L (15-37); BLOOD UREA NITROGEN 4 mg/dL (7-18)
[2016-06-01 04:06] LABS: DIFF TOTAL CELLS COUNTED 100 CELL DIFF
[2016-06-01 04:12] LABS: VERIFY COUNTS? YES
[2016-06-01 04:13] LABS: ANISOCYTOSIS 1+
[2016-06-01 04:14] LABS: OVALOCYTES 1+
[2016-06-01 04:15] LABS: POLYCHROMASIA 1+
[2016-06-01] MEDS: LACTOBACILLUS CHEW TABLET PO SCH ×4 (06:09→21:59)
[2016-06-01] MEDS: PROCHLORPERAZINE 5 MG/ML, 2ML IV PRN ×3 (06:23→21:53)
[2016-06-01 07:19] VITALS: BP 121/76
[2016-06-01] MEDS: DRONABINOL 5 MG CAPSULE PO SCH ×2 (08:13→21:53)
[2016-06-01] MEDS: ACYCLOVIR 400 MG TABLET PO SCH ×3 (08:13→22:20)
[2016-06-01] MEDS: PANTOPROZOLE 40MG TABLET PO SCH (08:14)
[2016-06-01] MEDS: SENNA/DOCUSATE TABLET PO SCH ×2 (08:16→21:59)
[2016-06-01] MEDS: DIPHENOXYLATE/ATROPINE TABLET PO SCH ×2 (09:00→22:20)
[2016-06-01] MEDS: TBO-FILGRASTIM 480 MCG/0.8 ML SQ SCH (09:46)
[2016-06-01] MEDS: VANCOMYCIN 2,000 MG in SODIUM CHLORIDE 0.9% 500 ML IV SCH (09:47)
[2016-06-01] MEDS: SODIUM CHLORIDE 0.9% 1,000 ML IV SCH ×3 (10:00→20:00)
[2016-06-01 13:10] VITALS: BP 126/83
[2016-06-01] MEDS ORDERED: OMNIPAQUE 350 MG/ML, 100ML BOTTLE ONE (13:54)
[2016-06-01 20:00] VITALS: BP 121/81
[2016-06-01] MEDS: ALLOPURINOL 300 MG TABLET PO SCH (21:52)
[2016-06-01] MEDS: LOPERAMIDE 2 MG CAPSULE PO PRN (21:52)
[2016-06-01] MEDS: NICOTINE 21 MG/24 HR PATCH.TD24 TD SCH (21:53)
[2016-06-02] MEDS: MEROPENEM 1 GM in SODIUM CHLORIDE 0.9% 100 ML IV SCH ×3 (02:59→20:49)
[2016-06-02] MEDS: SODIUM CHLORIDE 0.9% 1,000 ML IV SCH ×3 (02:59→23:00)
[2016-06-02 03:03] VITALS: BP 119/86
[2016-06-02 03:25] LABS: HEMOGLOBIN 9.5 g/dL (13.7-18.0)
[2016-06-02 03:27] LABS: BLOOD UREA NITROGEN 5 mg/dL (7-18)
[2016-06-02 04:20] LABS: DIFF TOTAL CELLS COUNTED 100 CELL DIFF
[2016-06-02] MEDS: OXYcodone IR 5MG TABLET PO PRN ×5 (04:22→20:49)
[2016-06-02 04:25] LABS: ANISOCYTOSIS 1+; POLYCHROMASIA 1+; VERIFY COUNTS? YES
[2016-06-02] MEDS: ONDANSETRON 2MG/ML, 2ML IVP PRN ×3 (06:06→18:51)
[2016-06-02] MEDS: LACTOBACILLUS CHEW TABLET PO SCH ×4 (06:30→21:00)
[2016-06-02 07:49] VITALS: BP 125/78
[2016-06-02] MEDS: SENNA/DOCUSATE TABLET PO SCH ×2 (08:31→21:00)
[2016-06-02] MEDS: ACYCLOVIR 400 MG TABLET PO SCH ×2 (09:12→22:58)
[2016-06-02] MEDS: DRONABINOL 5 MG CAPSULE PO SCH ×2 (09:12→22:58)
[2016-06-02] MEDS: PANTOPROZOLE 40MG TABLET PO SCH (09:12)
[2016-06-02] MEDS: DIPHENOXYLATE/ATROPINE TABLET PO SCH ×2 (09:12→22:58)
[2016-06-02] MEDS: PROCHLORPERAZINE 5 MG/ML, 2ML IV PRN ×3 (09:13→20:49)
[2016-06-02] MEDS: TBO-FILGRASTIM 480 MCG/0.8 ML SQ SCH (09:13)
[2016-06-02 15:29] VITALS: BP 117/77
[2016-06-02] MEDS: ALLOPURINOL 300 MG TABLET PO SCH (16:49)
[2016-06-02 20:00] VITALS: BP 122/81
[2016-06-02] MEDS: NICOTINE 21 MG/24 HR PATCH.TD24 TD SCH (22:56)
[2016-06-03 02:00] VITALS: BP 120/77
[2016-06-03] MEDS: ONDANSETRON 2MG/ML, 2ML IVP PRN ×3 (04:13→16:29)
[2016-06-03] MEDS: MEROPENEM 1 GM in SODIUM CHLORIDE 0.9% 100 ML IV SCH ×3 (04:15→19:43)
[2016-06-03 04:53] LABS: BLOOD UREA NITROGEN 5 mg/dL (7-18)
[2016-06-03 04:58] LABS: HEMOGLOBIN 9.8 g/dL (13.7-18.0)
[2016-06-03] MEDS: LACTOBACILLUS CHEW TABLET PO SCH ×4 (05:44→20:34)
[2016-06-03 05:52] LABS: DIFF TOTAL CELLS COUNTED 100 CELL DIFF
[2016-06-03 05:56] LABS: ANISOCYTOSIS 1+; OVALOCYTES 1+; POLYCHROMASIA 1+; VERIFY COUNTS? YES
[2016-06-03] MEDS: PROCHLORPERAZINE 5 MG/ML, 2ML IV PRN ×2 (06:58→13:18)
[2016-06-03 08:18] VITALS: BP 123/80
[2016-06-03] MEDS: SENNA/DOCUSATE TABLET PO SCH ×2 (09:00→21:00)
[2016-06-03] MEDS: DIPHENOXYLATE/ATROPINE TABLET PO SCH (09:00)
[2016-06-03] MEDS: PANTOPROZOLE 40MG TABLET PO SCH (09:37)
[2016-06-03] MEDS: DRONABINOL 5 MG CAPSULE PO SCH ×2 (09:37→19:43)
[2016-06-03] MEDS: SODIUM CHLORIDE 0.9% 1,000 ML IV SCH ×2 (13:18→19:00)
[2016-06-03 14:15] VITALS: BP 121/83
[2016-06-03] MEDS ORDERED: DIPHENOXYLATE/ATROPINE TABLET PO PRN (19:00)
[2016-06-03] MEDS: DIPHENHYDRAMINE 50 MG CAPSULE PO PRN (19:43)
[2016-06-03] MEDS: NICOTINE 21 MG/24 HR PATCH.TD24 TD SCH (19:43)
[2016-06-03 20:00] VITALS: BP 121/80
[2016-06-03] MEDS: PROMETHAZINE 25MG TABLET PO PRN (20:33)
[2016-06-03] MEDS: ONDANSETRON ODT 4 MG PO PRN (22:37)
[2016-06-03] MEDS: OXYcodone IR 5MG TABLET PO PRN (23:50)
[2016-06-04 03:00] VITALS: BP 114/73
[2016-06-04] MEDS: MEROPENEM 1 GM in SODIUM CHLORIDE 0.9% 100 ML IV SCH ×3 (04:05→21:06)
[2016-06-04] MEDS: LACTOBACILLUS CHEW TABLET PO SCH ×5 (05:44→21:20)
[2016-06-04] MEDS: SODIUM CHLORIDE 0.9% 1,000 ML IV SCH ×2 (06:42→17:00)
[2016-06-04] MEDS: ONDANSETRON ODT 4 MG PO PRN ×3 (06:42→17:11)
[2016-06-04 07:01] LABS: HEMOGLOBIN 9.7 g/dL (13.7-18.0)
[2016-06-04 07:09] LABS: BLOOD UREA NITROGEN 7 mg/dL (7-18)
[2016-06-04 07:51] LABS: DIFF TOTAL CELLS COUNTED 100 CELL DIFF
[2016-06-04 07:52] LABS: ANISOCYTOSIS 1+
[2016-06-04 07:53] LABS: VERIFY COUNTS? YES
[2016-06-04 07:57] VITALS: BP 115/80
[2016-06-04] MEDS: SENNA/DOCUSATE TABLET PO SCH ×2 (09:00→21:00)
[2016-06-04] MEDS: PANTOPROZOLE 40MG TABLET PO SCH (09:08)
[2016-06-04] MEDS: DRONABINOL 5 MG CAPSULE PO SCH ×2 (09:08→21:06)
[2016-06-04] MEDS: PROMETHAZINE 25MG TABLET PO PRN ×2 (09:08→14:40)
[2016-06-04 13:38] VITALS: BP 119/81
[2016-06-04] MEDS: OXYcodone IR 5MG TABLET PO PRN ×2 (17:06→21:06)
[2016-06-04 20:27] VITALS: BP 112/80
[2016-06-04] MEDS: PROCHLORPERAZINE 5 MG/ML, 2ML IV PRN (21:05)
[2016-06-04] MEDS: NICOTINE 21 MG/24 HR PATCH.TD24 TD SCH (21:06)
[2016-06-05] MEDS: MEROPENEM 1 GM in SODIUM CHLORIDE 0.9% 100 ML IV SCH (04:19)
[2016-06-05 04:25] VITALS: BP 118/76
[2016-06-05] MEDS: OXYcodone IR 5MG TABLET PO PRN ×3 (04:26→14:03)
[2016-06-05] MEDS: ONDANSETRON ODT 4 MG PO PRN ×3 (04:27→14:03)
[2016-06-05 07:21] LABS: HEMOGLOBIN 10.8 g/dL (13.7-18.0)
[2016-06-05 07:23] LABS: DIFF TOTAL CELLS COUNTED 100 CELL DIFF
[2016-06-05 07:40] VITALS: BP 117/80
[2016-06-05] MEDS: PROMETHAZINE 25MG TABLET PO PRN ×2 (07:48→12:10)
[2016-06-05] MEDS: PANTOPROZOLE 40MG TABLET PO SCH (07:48)
[2016-06-05 08:00] LABS: BLOOD UREA NITROGEN 10 mg/dL (7-18)
[2016-06-05 08:12] LABS: ANISOCYTOSIS 1+; POLYCHROMASIA 1+
[2016-06-05 08:14] LABS: VERIFY COUNTS? YES
[2016-06-05] MEDS: SENNA/DOCUSATE TABLET PO SCH (09:00)
[2016-06-05] MEDS: DRONABINOL 5 MG CAPSULE PO SCH (09:35)
[2016-06-05] MEDS: LACTOBACILLUS CHEW TABLET PO SCH ×2 (11:00→16:00)
[2016-06-05 14:45] VITALS: BP 115/72
[2016-06-05] MEDS ORDERED: DRON5CAP15 PO (16:46)
[2016-06-05] MEDS ORDERED: PROM25TA10 PO (16:46)
[2016-06-05] MEDS ORDERED: Ondansetron PO (16:46)
[2016-06-05] MEDS ORDERED: OXYC5TAB3 PO (16:46)
== END 2016-06-05 17:34 | disposition home or self-care (01) | DRG 835 ==
LOC: ED 10:47 → EDIP 13:45 → 3NW 15:13
PROVIDERS: ADMIT Internal Medicine; ATTEND Internal Medicine
PROC: 30233R1 Transfusion of Nonautologous Platelets into Peripheral Vein, Percutaneous Approach (ICD-10-PCS; principal; 2016-05-06)
PROC: 30233N1 Transfusion of Nonautologous Red Blood Cells into Peripheral Vein, Percutaneous Approach (ICD-10-PCS; 2016-05-06)
PROC: 07DR3ZX Extraction of Iliac Bone Marrow, Percutaneous Approach, Diagnostic (ICD-10-PCS; 2016-05-07)
PROC: 0T9B70Z Drainage of Bladder with Drainage Device, Via Natural or Artificial Opening (ICD-10-PCS; 2016-05-07)
PROC: 02HV33Z Insertion of Infusion Device into Superior Vena Cava, Percutaneous Approach (ICD-10-PCS; 2016-05-08)
PROC: B5181ZA Fluoroscopy of Superior Vena Cava using Low Osmolar Contrast, Guidance (ICD-10-PCS; 2016-05-08)
PROC: 02HV33Z Insertion of Infusion Device into Superior Vena Cava, Percutaneous Approach (ICD-10-PCS; 2016-05-25)
PROC: B5181ZA Fluoroscopy of Superior Vena Cava using Low Osmolar Contrast, Guidance (ICD-10-PCS; 2016-05-25)
PROC: 07DR3ZX Extraction of Iliac Bone Marrow, Percutaneous Approach, Diagnostic (ICD-10-PCS; 2016-05-25)
DX: C93.00 Acute monoblastic/monocytic leukemia, not having achieved remission (principal); R65.10 Systemic inflammatory response syndrome (SIRS) of non-infectious origin without acute organ dysfunction; D61.818 Other pancytopenia; E44.0 Moderate protein-calorie malnutrition; Z80.42 Family history of malignant neoplasm of prostate; Z80.9 Family history of malignant neoplasm, unspecified; D69.6 Thrombocytopenia, unspecified; K21.9 Gastro-esophageal reflux disease without esophagitis; D53.9 Nutritional anemia, unspecified; H35.62 Retinal hemorrhage, left eye; H53.40 Unspecified visual field defects; K52.9 Noninfective gastroenteritis and colitis, unspecified; Z88.0 Allergy status to penicillin; Z92.21 Personal history of antineoplastic chemotherapy; Z83.3 Family history of diabetes mellitus; Z68.28 Body mass index [BMI] 28.0-28.9, adult; G43.909 Migraine, unspecified, not intractable, without status migrainosus; Z00.6 Encounter for examination for normal comparison and control in clinical research program; E87.6 Hypokalemia; E83.39 Other disorders of phosphorus metabolism; E83.42 Hypomagnesemia; F12.10 Cannabis abuse, uncomplicated
CPT/HCPCS: 36415; 36569; 36584; 70450; 70553; 71010; 74177; 76700; 76937; 77001; 77012; 80048; 80053; 80202; 80307; 80329; 81001; 81003; 82140; 82247; 82248; 82784; 83516; 83605; 83615; 83735; 84100; 84145; 84550; 85025; 85027; 85045; 85049; 85097; 85384; 85610; 85651; 85730; 86038; 86140; 86141; 86160; 86225; 86235; 86255; 86256; 86376; 86431; 86703; 86704; 86706; 86803; 86850; 86880; 86900; 86923; 87040; 87046; 87086; 87324; 87340; 87496; 87529; 87899; 88237; 88264; 88280; 88305; 88311; 88313; 88341; 88342; 93005; 93306; 96360; 99156; 99157; A9585; G0364; J0744; J1100; J1450; J1453; J2185; J2248; J2250; J2405; J2997; J3010; J3370; J3480; J3490; J9100; J9211; Q0162; Q0167; Q0169; Q9967; C1751; G0435; G0461; G0480; J0780; J1447; J1720; J2060; J2310; J3475; J7030; J7040; J7050; P9037; P9040

== ENCOUNTER 2016-06-23 10:21 | Day surgery (SDC) | payer OTHER ==
[~2016-06-23] VITALS: Ht 177.8 cm; Wt 80.0 kg
[~2016-06-23 10:21] MED LIST: DRON5CAP15 PO; OXYC5TAB3 PO; Ondansetron PO; PROM25TA10 PO
[2016-06-23] MEDS ORDERED: SODIUM CHLORIDE 0.9% 1,000 ML IV SCH (10:48)
[2016-06-23 10:49] VITALS: BP 130/86
[2016-06-23] MEDS ORDERED: LIDOCAINE 1%, 20ML ONE (11:01)
[2016-06-23] MEDS ORDERED: NALOXONE 1 MG/ML, 2ML ONE (11:08)
[2016-06-23] MEDS ORDERED: FLUMAZENIL 0.1 MG/1 ML, 5ML ONE (11:08)
[2016-06-23] MEDS ORDERED: FENTANYL PF 100 MCG/2ML ONE ×2 (11:08)
[2016-06-23] MEDS ORDERED: MIDAZOLAM 1 MG/ML, 5ML ONE (11:08)
== END 2016-06-23 15:10 | disposition home or self-care (01) ==
LOC: OUT 10:21
PROVIDERS: ATTEND Internal Medicine Hematology & Oncology
DX: D69.59 Other secondary thrombocytopenia (principal); D64.9 Anemia, unspecified; D70.4 Cyclic neutropenia; F12.10 Cannabis abuse, uncomplicated; F17.210 Nicotine dependence, cigarettes, uncomplicated
CPT/HCPCS: 36415; 38221; 77012; 85025; 85097; 88237; 88264; 88280; 88305; 88311; 88313; G0364; J2250; J3010; J7030; 99156; 99157; J3490; J2310

== ENCOUNTER 2016-07-13 08:30 | Inpatient (IN) | payer OTHER ==
[~2016-07-13] VITALS: Ht 177.8 cm; Wt 81.4 kg
[2016-07-13 12:34] VITALS: BP 115/58
[2016-07-13] MEDS: predniSOLONE OPHTH SUSP 1%, 5ML OP SCH ×3 (14:20→21:16)
[2016-07-13] MEDS: SODIUM CHLORIDE 0.9% 1,000 ML IV SCH ×2 (14:21→21:19)
[2016-07-13 14:45] LABS: ASPARTATE AMINO TRANSFERASE 12 U/L (15-37); BLOOD UREA NITROGEN 10 mg/dL (7-18)
[2016-07-13] MEDS ORDERED: OMNIPAQUE 350 MG/ML, 100ML BOTTLE ONE (16:55)
[2016-07-13 19:42] VITALS: BP 112/75
[2016-07-14] MEDS: predniSOLONE OPHTH SUSP 1%, 5ML OP SCH ×6 (01:34→21:03)
[2016-07-14 01:36] VITALS: BP 130/54
[2016-07-14] MEDS: SODIUM CHLORIDE 0.9% 1,000 ML IV SCH ×2 (04:48→13:36)
[2016-07-14 08:31] VITALS: BP 129/74
[2016-07-14] MEDS: NICOTINE 21 MG/24 HR PATCH.TD24 TD SCH (09:53)
[2016-07-14] MEDS ORDERED: FOSAPREPITANT 150 MG in SODIUM CHLORIDE 0.9% 150 ML IV ONE (13:00)
[2016-07-14] MEDS: ONDANSETRON 16 MG, DEXAMETHASONE 10 MG in SODIUM CHLORIDE 0.9% 50 ML IVPB SCH (13:28)
[2016-07-14] MEDS: CYTARABINE IV SCH (14:26)
[2016-07-14] MEDS: SODIUM CHLORIDE 0.9% IV SCH (14:26)
[2016-07-14 14:50] VITALS: BP 146/83
[2016-07-14] MEDS: ENOXAPARIN 40 MG/0.4 ML SQ SCH (17:58)
[2016-07-14 20:30] VITALS: BP 132/88
[2016-07-15] MEDS: predniSOLONE OPHTH SUSP 1%, 5ML OP SCH ×6 (02:01→21:21)
[2016-07-15 02:04] VITALS: BP 121/75
[2016-07-15] MEDS: SODIUM CHLORIDE 0.9% IV SCH (02:24)
[2016-07-15] MEDS: CYTARABINE IV SCH (02:24)
[2016-07-15] MEDS: SODIUM CHLORIDE 0.9% 1,000 ML IV SCH ×4 (06:33→21:21)
[2016-07-15] MEDS: PROCHLORPERAZINE 10MG TABLET PO PRN ×3 (07:52→21:21)
[2016-07-15 09:00] VITALS: BP 118/71
[2016-07-15] MEDS: NICOTINE 21 MG/24 HR PATCH.TD24 TD SCH (09:54)
[2016-07-15] MEDS: ONDANSETRON 2MG/ML, 2ML IVPush PRN ×2 (11:59→17:58)
[2016-07-15 12:53] VITALS: BP 114/70
[2016-07-15] MEDS: ONDANSETRON 16 MG, DEXAMETHASONE 10 MG in SODIUM CHLORIDE 0.9% 50 ML IVPB SCH (14:00)
[2016-07-15] MEDS: ENOXAPARIN 40 MG/0.4 ML SQ SCH (17:58)
[2016-07-15 21:17] VITALS: BP 121/75
[2016-07-16] MEDS: ONDANSETRON 2MG/ML, 2ML IVPush PRN ×5 (00:08→23:57)
[2016-07-16] MEDS: PROCHLORPERAZINE 10MG TABLET PO PRN ×4 (02:57→22:04)
[2016-07-16] MEDS: predniSOLONE OPHTH SUSP 1%, 5ML OP SCH ×6 (02:57→22:05)
[2016-07-16 03:05] VITALS: BP 122/62
[2016-07-16 03:43] LABS: BLOOD UREA NITROGEN 12 mg/dL (7-18)
[2016-07-16 03:47] LABS: ASPARTATE AMINO TRANSFERASE 9 U/L (15-37)
[2016-07-16] MEDS: SODIUM CHLORIDE 0.9% 1,000 ML IV SCH ×3 (04:56→23:08)
[2016-07-16] MEDS: NICOTINE 21 MG/24 HR PATCH.TD24 TD SCH (09:16)
[2016-07-16 09:17] VITALS: BP 134/84
[2016-07-16] MEDS: ONDANSETRON 16 MG, DEXAMETHASONE 10 MG in SODIUM CHLORIDE 0.9% 50 ML IVPB SCH (13:17)
[2016-07-16] MEDS: CYTARABINE IV SCH (14:06)
[2016-07-16] MEDS: SODIUM CHLORIDE 0.9% IV SCH (14:06)
[2016-07-16 15:24] VITALS: BP 139/80
[2016-07-16] MEDS: ENOXAPARIN 40 MG/0.4 ML SQ SCH (18:04)
[2016-07-16 19:47] VITALS: BP 135/74
[2016-07-17] MEDS: predniSOLONE OPHTH SUSP 1%, 5ML OP SCH ×6 (01:50→21:37)
[2016-07-17] MEDS: CYTARABINE IV SCH (01:55)
[2016-07-17] MEDS: SODIUM CHLORIDE 0.9% IV SCH (01:55)
[2016-07-17 02:16] VITALS: BP 141/78
[2016-07-17] MEDS: PROCHLORPERAZINE 10MG TABLET PO PRN ×4 (03:25→20:32)
[2016-07-17 05:50] LABS: BLOOD UREA NITROGEN 14 mg/dL (7-18)
[2016-07-17] MEDS: ONDANSETRON 2MG/ML, 2ML IVPush PRN ×4 (05:54→23:55)
[2016-07-17 05:57] LABS: ASPARTATE AMINO TRANSFERASE 16 U/L (15-37)
[2016-07-17] MEDS: NICOTINE 21 MG/24 HR PATCH.TD24 TD SCH (09:04)
[2016-07-17] MEDS: SODIUM CHLORIDE 0.9% 1,000 ML IV SCH ×3 (09:08→21:37)
[2016-07-17 09:15] VITALS: BP 127/74
[2016-07-17] MEDS: ONDANSETRON 16 MG, DEXAMETHASONE 10 MG in SODIUM CHLORIDE 0.9% 50 ML IVPB SCH (13:20)
[2016-07-17 15:06] VITALS: BP 134/83
[2016-07-17] MEDS: ENOXAPARIN 40 MG/0.4 ML SQ SCH (17:28)
[2016-07-17 19:23] VITALS: BP 151/83
[2016-07-18] MEDS: PROCHLORPERAZINE 10MG TABLET PO PRN ×4 (02:02→20:12)
[2016-07-18 02:03] VITALS: BP 150/80
[2016-07-18] MEDS: predniSOLONE OPHTH SUSP 1%, 5ML OP SCH ×6 (02:03→21:52)
[2016-07-18 05:31] LABS: BLOOD UREA NITROGEN 15 mg/dL (7-18)
[2016-07-18 05:35] LABS: ASPARTATE AMINO TRANSFERASE 17 U/L (15-37)
[2016-07-18] MEDS: ONDANSETRON 2MG/ML, 2ML IVPush PRN ×3 (05:55→18:09)
[2016-07-18] MEDS: SODIUM CHLORIDE 0.9% 1,000 ML IV SCH ×3 (05:55→17:25)
[2016-07-18 06:04] VITALS: BP 141/61
[2016-07-18 08:00] VITALS: BP 145/82
[2016-07-18] MEDS: NICOTINE 21 MG/24 HR PATCH.TD24 TD SCH (08:01)
[2016-07-18] MEDS: ONDANSETRON 16 MG, DEXAMETHASONE 10 MG in SODIUM CHLORIDE 0.9% 50 ML IVPB SCH (13:47)
[2016-07-18] MEDS: CYTARABINE IV SCH (14:41)
[2016-07-18] MEDS: SODIUM CHLORIDE 0.9% IV SCH (14:41)
[2016-07-18 14:48] VITALS: BP 144/81
[2016-07-18 18:11] LABS: DIFF TOTAL CELLS COUNTED 100 CELL DIFF
[2016-07-18 18:17] LABS: VERIFY COUNTS? YES
[2016-07-18 20:00] VITALS: BP 131/76
[2016-07-19] MEDS: ONDANSETRON 2MG/ML, 2ML IVPush PRN ×3 (00:02→07:58)
[2016-07-19] MEDS: CYTARABINE IV SCH (01:01)
[2016-07-19] MEDS: SODIUM CHLORIDE 0.9% IV SCH (01:01)
[2016-07-19 01:09] VITALS: BP 143/82
[2016-07-19] MEDS: predniSOLONE OPHTH SUSP 1%, 5ML OP SCH ×2 (02:45→05:37)
[2016-07-19] MEDS: PROCHLORPERAZINE 10MG TABLET PO PRN (02:45)
[2016-07-19] MEDS: SODIUM CHLORIDE 0.9% 1,000 ML IV SCH (05:13)
[2016-07-19 07:30] VITALS: BP 152/86
[2016-07-19] MEDS: NICOTINE 21 MG/24 HR PATCH.TD24 TD SCH (07:57)
[2016-07-19] MEDS ORDERED: FLUC100T4 PO (08:13)
[2016-07-19] MEDS ORDERED: PROC10TA78 PO (08:15)
[2016-07-19] MEDS ORDERED: ACYC-114 PO (08:16)
[2016-07-19] MEDS ORDERED: ONDA8TAB9 PO (08:18)
[2016-07-19] MEDS ORDERED: CIPR500T3 PO (08:19)
== END 2016-07-19 08:58 | disposition home or self-care (01) | DRG 839 ==
LOC: 3NW 11:56
PROVIDERS: ADMIT Internal Medicine Hematology & Oncology; ATTEND Internal Medicine Hematology & Oncology
PROC: 02HV33Z Insertion of Infusion Device into Superior Vena Cava, Percutaneous Approach (ICD-10-PCS; principal; 2016-07-13)
PROC: B548ZZA Ultrasonography of Superior Vena Cava, Guidance (ICD-10-PCS; 2016-07-13)
PROC: B5181ZA Fluoroscopy of Superior Vena Cava using Low Osmolar Contrast, Guidance (ICD-10-PCS; 2016-07-13)
PROC: 3E04305 Introduction of Other Antineoplastic into Central Vein, Percutaneous Approach (ICD-10-PCS; 2016-07-13)
DX: Z51.11 Encounter for antineoplastic chemotherapy (principal); C92.00 Acute myeloblastic leukemia, not having achieved remission; F17.210 Nicotine dependence, cigarettes, uncomplicated; D69.6 Thrombocytopenia, unspecified; R74.8 Abnormal levels of other serum enzymes; Z71.6 Tobacco abuse counseling
CPT/HCPCS: 36415; 36569; 74170; 76937; 77001; 80053; 80061; 82150; 82248; 83690; 85025; 85384; 85610; J1100; J1453; J1650; J2405; J9100; Q0164; Q9967; C1751; J7030; J7050

== ENCOUNTER 2016-08-17 08:55 | Inpatient (IN) | payer OTHER ==
[~2016-08-17] VITALS: Ht 177.8 cm; Wt 82.5 kg
[~2016-08-17 08:55] MED LIST changes: +ACYC-114 PO; +CIPR500T3 PO; +FLUC100T4 PO; +ONDA8TAB9 PO; +PROC10TA78 PO
[2016-08-17 10:24] VITALS: BP 147/79
[2016-08-17 12:04] LABS: ASPARTATE AMINO TRANSFERASE 25 U/L (15-37); BLOOD UREA NITROGEN 5 mg/dL (7-18)
[2016-08-17] MEDS ORDERED: POTASSIUM CHLORIDE 20 MEQ TAB.ER.PRT PO ONE (12:30)
[2016-08-17] MEDS ORDERED: FOSAPREPITANT 150 MG in SODIUM CHLORIDE 0.9% 150 ML IV ONE (13:00)
[2016-08-17] MEDS: SODIUM CHLORIDE 0.9% 1,000 ML IV SCH (13:16)
[2016-08-17] MEDS: ENOXAPARIN 40 MG/0.4 ML SQ SCH (13:17)
[2016-08-17] MEDS: predniSOLONE OPHTH SUSP 1%, 5ML OP SCH ×3 (13:29→22:18)
[2016-08-17 13:47] VITALS: BP 126/79
[2016-08-17] MEDS: ONDANSETRON 16 MG, DEXAMETHASONE 10 MG in SODIUM CHLORIDE 0.9% 50 ML IVPB SCH (14:40)
[2016-08-17] MEDS ORDERED: LOPERAMIDE 2 MG CAPSULE PO PRN ×2 (15:00)
[2016-08-17] MEDS ORDERED: NYSTATIN 500,000 UNITS/5 ML UDC PO PRN (15:00)
[2016-08-17] MEDS ORDERED: ONDANSETRON 2MG/ML, 2ML IVPush PRN (15:00)
[2016-08-17] MEDS ORDERED: SENNA/DOCUSATE TABLET PO PRN (15:00)
[2016-08-17] MEDS ORDERED: BISACODYL 5 MG EC TABLET PO PRN (15:00)
[2016-08-17] MEDS ORDERED: PROCHLORPERAZINE 25 MG SUPP PR PRN (15:00)
[2016-08-17] MEDS ORDERED: ONDANSETRON 8 MG TABLET PO PRN (15:00)
[2016-08-17] MEDS ORDERED: LIDOCAINE/PRILOCAINE CRM W/TEG 5GM TP PRN (15:00)
[2016-08-17] MEDS: CYTARABINE IV SCH (15:55)
[2016-08-17] MEDS: SODIUM CHLORIDE 0.9% IV SCH (15:55)
[2016-08-17] MEDS: NICOTINE 21 MG/24 HR PATCH.TD24 TD SCH (18:14)
[2016-08-17 20:19] VITALS: BP 113/62
[2016-08-18] MEDS: SODIUM CHLORIDE 0.9% 1,000 ML IV SCH ×3 (00:44→20:01)
[2016-08-18] MEDS: predniSOLONE OPHTH SUSP 1%, 5ML OP SCH ×6 (01:52→22:10)
[2016-08-18 01:56] VITALS: BP 125/71
[2016-08-18] MEDS: CYTARABINE IV SCH (03:56)
[2016-08-18] MEDS: SODIUM CHLORIDE 0.9% IV SCH (03:56)
[2016-08-18 07:23] VITALS: BP 120/72
[2016-08-18] MEDS ORDERED: NICOTINE 21 MG/24 HR PATCH.TD24 TD SCH (09:00)
[2016-08-18] MEDS: NICOTINE 21 MG/24 HR PATCH.TD24 TD SCH (09:04)
[2016-08-18 13:26] VITALS: BP 116/67
[2016-08-18] MEDS: PROCHLORPERAZINE 10MG TABLET PO PRN (13:41)
[2016-08-18] MEDS: ENOXAPARIN 40 MG/0.4 ML SQ SCH (13:41)
[2016-08-18] MEDS: ONDANSETRON 16 MG, DEXAMETHASONE 10 MG in SODIUM CHLORIDE 0.9% 50 ML IVPB SCH (13:43)
[2016-08-18] MEDS ORDERED: POTASSIUM CHLORIDE 20 MEQ TAB.ER.PRT PO ONE (17:30)
[2016-08-18] MEDS ORDERED: POTASSIUM CHLORIDE 20 MEQ TAB.ER.PRT PO SCH (17:30)
[2016-08-18 19:28] VITALS: BP 121/72
[2016-08-19] MEDS: predniSOLONE OPHTH SUSP 1%, 5ML OP SCH ×6 (02:35→22:02)
[2016-08-19 02:54] VITALS: BP 121/74
[2016-08-19 03:03] LABS: ASPARTATE AMINO TRANSFERASE 15 U/L (15-37); BLOOD UREA NITROGEN 12 mg/dL (7-18)
[2016-08-19] MEDS: SODIUM CHLORIDE 0.9% 1,000 ML IV SCH ×2 (06:06→16:27)
[2016-08-19 07:31] VITALS: BP 133/81
[2016-08-19] MEDS: NICOTINE 21 MG/24 HR PATCH.TD24 TD SCH (07:34)
[2016-08-19] MEDS: ENOXAPARIN 40 MG/0.4 ML SQ SCH (13:17)
[2016-08-19] MEDS: ONDANSETRON 16 MG, DEXAMETHASONE 10 MG in SODIUM CHLORIDE 0.9% 50 ML IVPB SCH (13:17)
[2016-08-19 13:43] VITALS: BP 130/82
[2016-08-19] MEDS: SODIUM CHLORIDE 0.9% IV SCH (14:32)
[2016-08-19] MEDS: CYTARABINE IV SCH (14:32)
[2016-08-19 20:21] VITALS: BP 128/78
[2016-08-20] MEDS ORDERED: ONDANSETRON 4 MG TABLET PO PRN (01:00)
[2016-08-20] MEDS: SODIUM CHLORIDE 0.9% IV SCH (02:00)
[2016-08-20] MEDS: CYTARABINE IV SCH (02:00)
[2016-08-20] MEDS: predniSOLONE OPHTH SUSP 1%, 5ML OP SCH ×6 (02:02→22:08)
[2016-08-20] MEDS: SODIUM CHLORIDE 0.9% 1,000 ML IV SCH ×3 (02:11→22:08)
[2016-08-20 02:28] VITALS: BP 125/69
[2016-08-20 06:07] LABS: BLOOD UREA NITROGEN 17 mg/dL (7-18)
[2016-08-20 06:09] LABS: ASPARTATE AMINO TRANSFERASE 28 U/L (15-37)
[2016-08-20] MEDS: NICOTINE 21 MG/24 HR PATCH.TD24 TD SCH (07:25)
[2016-08-20 07:34] VITALS: BP 134/82
[2016-08-20] MEDS: PROCHLORPERAZINE 10MG TABLET PO PRN (12:01)
[2016-08-20] MEDS: ONDANSETRON 16 MG, DEXAMETHASONE 10 MG in SODIUM CHLORIDE 0.9% 50 ML IVPB SCH (13:25)
[2016-08-20] MEDS: ENOXAPARIN 40 MG/0.4 ML SQ SCH (13:25)
[2016-08-20] MEDS ORDERED: FOSAPREPITANT 150 MG in SODIUM CHLORIDE 0.9% 145 ML IV ONE (14:00)
[2016-08-20 14:46] VITALS: BP 146/78
[2016-08-20 18:50] VITALS: BP 136/76
[2016-08-20] MEDS: PROCHLORPERAZINE 5 MG/ML, 2ML IVPush PRN (20:08)
[2016-08-21] MEDS: predniSOLONE OPHTH SUSP 1%, 5ML OP SCH ×6 (02:02→22:41)
[2016-08-21] MEDS: PROCHLORPERAZINE 5 MG/ML, 2ML IVPush PRN ×4 (02:02→19:55)
[2016-08-21 02:34] LABS: ASPARTATE AMINO TRANSFERASE 24 U/L (15-37); BLOOD UREA NITROGEN 17 mg/dL (7-18)
[2016-08-21 02:39] VITALS: BP 142/73
[2016-08-21 07:50] VITALS: BP 146/81
[2016-08-21] MEDS: SODIUM CHLORIDE 0.9% 1,000 ML IV SCH ×2 (08:03→19:21)
[2016-08-21] MEDS: NICOTINE 21 MG/24 HR PATCH.TD24 TD SCH (08:04)
[2016-08-21 12:51] VITALS: BP 137/86
[2016-08-21] MEDS: ENOXAPARIN 40 MG/0.4 ML SQ SCH (13:00)
[2016-08-21] MEDS: ONDANSETRON 16 MG, DEXAMETHASONE 10 MG in SODIUM CHLORIDE 0.9% 50 ML IVPB SCH (13:00)
[2016-08-21] MEDS: CYTARABINE IV SCH (14:37)
[2016-08-21] MEDS: SODIUM CHLORIDE 0.9% IV SCH (14:37)
[2016-08-21 19:00] VITALS: BP 149/81
[2016-08-22 02:05] VITALS: BP 145/80
[2016-08-22] MEDS: CYTARABINE IV SCH (02:24)
[2016-08-22] MEDS: predniSOLONE OPHTH SUSP 1%, 5ML OP SCH ×2 (02:24→06:04)
[2016-08-22] MEDS: PROCHLORPERAZINE 5 MG/ML, 2ML IVPush PRN (02:24)
[2016-08-22] MEDS: SODIUM CHLORIDE 0.9% IV SCH (02:24)
[2016-08-22 02:52] LABS: ASPARTATE AMINO TRANSFERASE 15 U/L (15-37); BLOOD UREA NITROGEN 18 mg/dL (7-18)
[2016-08-22] MEDS: SODIUM CHLORIDE 0.9% 1,000 ML IV SCH (06:04)
[2016-08-22 07:00] VITALS: BP 150/77
== END 2016-08-22 07:45 | disposition home or self-care (01) | DRG 847 ==
LOC: OBSVTOIN 09:50 → 3NW 09:50
PROVIDERS: ADMIT Internal Medicine Hematology & Oncology; ATTEND Internal Medicine Hematology & Oncology
DX: Z51.11 Encounter for antineoplastic chemotherapy (principal); C92.Z1 Other myeloid leukemia, in remission; F17.210 Nicotine dependence, cigarettes, uncomplicated; Z88.0 Allergy status to penicillin; Z80.9 Family history of malignant neoplasm, unspecified
CPT/HCPCS: 36415; 80053; 83735; 85025; J1100; J1453; J1650; J2405; J9100; Q0162; Q0164; J0780; J7030; J7050

== ENCOUNTER 2016-09-17 13:30 | Inpatient (IN) | payer OTHER ==
[~2016-09-17] VITALS: Ht 177.8 cm; Wt 81.7 kg
[2016-09-17 13:53] VITALS: BP 117/79
[2016-09-17] MEDS ORDERED: PLEASE ENTER ALLERGIES MC SCH ×2 (14:30)
[2016-09-17] MEDS ORDERED: SODIUM CHLORIDE 0.9% 1,000 ML IV SCH (14:30)
[2016-09-17 15:16] LABS: BLOOD UREA NITROGEN 6 mg/dL (7-18)
[2016-09-17 15:20] LABS: ASPARTATE AMINO TRANSFERASE 15 U/L (15-37)
[2016-09-17 15:39] VITALS: BP 117/79
[2016-09-17] MEDS ORDERED: NICOTINE 21 MG/24 HR PATCH.TD24 TD ONE (17:00)
[2016-09-17] MEDS: ENOXAPARIN 40 MG/0.4 ML SQ SCH (17:53)
[2016-09-17 20:05] VITALS: BP 116/81
[2016-09-17] MEDS: predniSOLONE OPHTH SUSP 1%, 5ML EACHEYE SCH (20:27)
[2016-09-17] MEDS: SODIUM CHLORIDE 0.9% 1,000 ML IV SCH (20:32)
[2016-09-18] MEDS: predniSOLONE OPHTH SUSP 1%, 5ML EACHEYE SCH ×6 (00:02→23:00)
[2016-09-18] MEDS: SODIUM CHLORIDE 0.9% 1,000 ML IV SCH ×3 (04:30→16:41)
[2016-09-18 04:34] VITALS: BP 119/71
[2016-09-18 08:06] VITALS: BP 118/77
[2016-09-18] MEDS ORDERED: FOSAPREPITANT 150 MG in SODIUM CHLORIDE 0.9% 145 ML IV ONE (08:30)
[2016-09-18] MEDS: ONDANSETRON 16 MG, DEXAMETHASONE 20 MG in SODIUM CHLORIDE 0.9% 50 ML IVPB SCH (08:33)
[2016-09-18] MEDS: SODIUM CHLORIDE 0.9% IV SCH ×2 (10:52→20:57)
[2016-09-18] MEDS: CYTARABINE IV SCH ×2 (10:52→20:57)
[2016-09-18 13:32] VITALS: BP 114/72
[2016-09-18] MEDS ORDERED: SODIUM CHLORIDE 0.9% 1,000 ML IV SCH (14:30)
[2016-09-18] MEDS: PROCHLORPERAZINE 10MG TABLET PO PRN ×2 (15:21→20:54)
[2016-09-18] MEDS: ENOXAPARIN 40 MG/0.4 ML SQ SCH (16:39)
[2016-09-18] MEDS: ONDANSETRON 2MG/ML, 2ML IVPush PRN (18:33)
[2016-09-18] MEDS: NICOTINE 21 MG/24 HR PATCH.TD24 TD SCH (19:16)
[2016-09-18 19:33] VITALS: BP 124/74
[2016-09-19] MEDS: SODIUM CHLORIDE 0.9% 1,000 ML IV SCH ×3 (02:00→17:24)
[2016-09-19 02:32] VITALS: BP 107/62
[2016-09-19] MEDS: predniSOLONE OPHTH SUSP 1%, 5ML EACHEYE SCH ×5 (02:33→20:02)
[2016-09-19] MEDS: ONDANSETRON 2MG/ML, 2ML IVPush PRN ×2 (06:01→14:13)
[2016-09-19 07:20] VITALS: BP 122/75
[2016-09-19] MEDS: PROCHLORPERAZINE 10MG TABLET PO PRN ×2 (08:24→17:21)
[2016-09-19] MEDS: ONDANSETRON 16 MG, DEXAMETHASONE 20 MG in SODIUM CHLORIDE 0.9% 50 ML IVPB SCH (08:52)
[2016-09-19 13:50] VITALS: BP 128/80
[2016-09-19] MEDS: ENOXAPARIN 40 MG/0.4 ML SQ SCH (17:21)
[2016-09-19] MEDS: NICOTINE 21 MG/24 HR PATCH.TD24 TD SCH (20:02)
[2016-09-19 20:06] VITALS: BP 121/76
[2016-09-20 03:00] VITALS: BP 131/73
[2016-09-20] MEDS: predniSOLONE OPHTH SUSP 1%, 5ML EACHEYE SCH ×7 (03:33→23:34)
[2016-09-20] MEDS: SODIUM CHLORIDE 0.9% 1,000 ML IV SCH ×3 (03:34→22:29)
[2016-09-20] MEDS: ONDANSETRON 16 MG, DEXAMETHASONE 20 MG in SODIUM CHLORIDE 0.9% 50 ML IVPB SCH (05:24)
[2016-09-20 06:04] LABS: ASPARTATE AMINO TRANSFERASE 14 U/L (15-37); BLOOD UREA NITROGEN 12 mg/dL (7-18)
[2016-09-20] MEDS: SODIUM CHLORIDE 0.9% IV SCH ×2 (06:27→17:55)
[2016-09-20] MEDS: CYTARABINE IV SCH ×2 (06:27→17:55)
[2016-09-20 07:45] VITALS: BP 143/77
[2016-09-20] MEDS: ONDANSETRON 2MG/ML, 2ML IVPush PRN ×2 (08:01→17:58)
[2016-09-20] MEDS ORDERED: SODIUM CHLORIDE 0.9% IV SCH (09:00)
[2016-09-20] MEDS ORDERED: CYTARABINE IV SCH (09:00)
[2016-09-20] MEDS: PROCHLORPERAZINE 10MG TABLET PO PRN (11:26)
[2016-09-20 14:27] VITALS: BP 117/67
[2016-09-20] MEDS: ENOXAPARIN 40 MG/0.4 ML SQ SCH (17:51)
[2016-09-20] MEDS: NICOTINE 21 MG/24 HR PATCH.TD24 TD SCH (17:51)
[2016-09-20 19:45] VITALS: BP 127/68
[2016-09-21 03:30] VITALS: BP 124/66
[2016-09-21] MEDS: predniSOLONE OPHTH SUSP 1%, 5ML EACHEYE SCH ×6 (03:52→23:45)
[2016-09-21] MEDS: ONDANSETRON 16 MG, DEXAMETHASONE 20 MG in SODIUM CHLORIDE 0.9% 50 ML IVPB SCH (05:52)
[2016-09-21] MEDS: SODIUM CHLORIDE 0.9% 1,000 ML IV SCH ×4 (05:56→21:14)
[2016-09-21 08:13] VITALS: BP 146/84
[2016-09-21] MEDS: ONDANSETRON 2MG/ML, 2ML IVPush PRN (12:07)
[2016-09-21 13:52] VITALS: BP 146/77
[2016-09-21] MEDS: PROCHLORPERAZINE 10MG TABLET PO PRN (16:04)
[2016-09-21] MEDS: ENOXAPARIN 40 MG/0.4 ML SQ SCH (16:04)
[2016-09-21] MEDS: NICOTINE 21 MG/24 HR PATCH.TD24 TD SCH (17:44)
[2016-09-21 19:14] VITALS: BP 134/79
[2016-09-22] MEDS: predniSOLONE OPHTH SUSP 1%, 5ML EACHEYE SCH ×5 (03:17→18:00)
[2016-09-22 03:45] VITALS: BP 136/76
[2016-09-22 03:48] LABS: ASPARTATE AMINO TRANSFERASE 18 U/L (15-37); BLOOD UREA NITROGEN 14 mg/dL (7-18)
[2016-09-22] MEDS: SODIUM CHLORIDE 0.9% 1,000 ML IV SCH ×2 (05:01→13:51)
[2016-09-22] MEDS: ONDANSETRON 16 MG, DEXAMETHASONE 20 MG in SODIUM CHLORIDE 0.9% 50 ML IVPB SCH (05:01)
[2016-09-22] MEDS: CYTARABINE IV SCH ×2 (05:50→17:58)
[2016-09-22] MEDS: SODIUM CHLORIDE 0.9% IV SCH ×2 (05:50→17:58)
[2016-09-22 08:17] VITALS: BP 148/80
[2016-09-22] MEDS ORDERED: SODIUM CHLORIDE 0.9% IV SCH (09:00)
[2016-09-22] MEDS ORDERED: CYTARABINE IV SCH (09:00)
[2016-09-22 16:58] VITALS: BP 149/76
[2016-09-22] MEDS: ENOXAPARIN 40 MG/0.4 ML SQ SCH (17:00)
[2016-09-22] MEDS: NICOTINE 21 MG/24 HR PATCH.TD24 TD SCH (19:00)
[2016-09-22 19:52] VITALS: BP 140/69
[2016-09-22] MEDS: ONDANSETRON 2MG/ML, 2ML IVPush PRN (21:11)
== END 2016-09-22 21:35 | disposition home or self-care (01) | DRG 839 ==
LOC: 3NW 13:42
PROVIDERS: ADMIT Internal Medicine Hematology & Oncology; ATTEND Internal Medicine Hematology & Oncology
DX: Z51.11 Encounter for antineoplastic chemotherapy (principal); C92.00 Acute myeloblastic leukemia, not having achieved remission; D69.6 Thrombocytopenia, unspecified
CPT/HCPCS: 36415; 80053; 85025; J1100; J1453; J1650; J2405; J9100; Q0164; J7030; J7050

== ENCOUNTER 2016-10-27 09:00 | Inpatient (IN) | payer OTHER ==
[~2016-10-27] VITALS: Ht 177.8 cm; Wt 82.6 kg
[2016-10-27 16:48] VITALS: BP 135/85
[2016-10-27 17:28] LABS: ASPARTATE AMINO TRANSFERASE 15 U/L (15-37); BLOOD UREA NITROGEN 5 mg/dL (7-18)
[2016-10-27] MEDS: SODIUM CHLORIDE 0.9% 1,000 ML IV SCH (17:39)
[2016-10-27] MEDS: predniSOLONE OPHTH SUSP 1%, 5ML EACHEYE SCH ×2 (18:00→21:43)
[2016-10-27] MEDS: ENOXAPARIN 40 MG/0.4 ML SQ SCH (18:22)
[2016-10-27 19:37] VITALS: BP 105/64
[2016-10-27] MEDS: ONDANSETRON 16 MG, DEXAMETHASONE 10 MG in SODIUM CHLORIDE 0.9% 50 ML IVPB SCH (19:53)
[2016-10-27] MEDS ORDERED: FOSAPREPITANT 150 MG in SODIUM CHLORIDE 0.9% 145 ML IV ONE (20:00)
[2016-10-27] MEDS ORDERED: NICOTINE 21 MG/24 HR PATCH.TD24 TD ONE (21:00)
[2016-10-27] MEDS: CYTARABINE IV SCH (21:42)
[2016-10-27] MEDS: SODIUM CHLORIDE 0.9% IV SCH (21:42)
[2016-10-28] MEDS: predniSOLONE OPHTH SUSP 1%, 5ML EACHEYE SCH ×6 (01:53→22:14)
[2016-10-28 02:00] VITALS: BP 112/66
[2016-10-28 05:07] LABS: HEMATOCRIT 27.5 % (39.2-51.8); HEMOGLOBIN 9.4 g/dL (13.7-18.0)
[2016-10-28 05:15] LABS: ASPARTATE AMINO TRANSFERASE 13 U/L (15-37); BLOOD UREA NITROGEN 7 mg/dL (7-18)
[2016-10-28] MEDS: SODIUM CHLORIDE 0.9% 1,000 ML IV SCH ×3 (05:45→20:20)
[2016-10-28 05:51] LABS: ANISOCYTOSIS 1+; POLYCHROMASIA 1+
[2016-10-28 05:52] LABS: OVALOCYTES 1+
[2016-10-28 06:59] VITALS: BP 127/74
[2016-10-28] MEDS: CYTARABINE IV SCH (08:59)
[2016-10-28] MEDS: SODIUM CHLORIDE 0.9% IV SCH (08:59)
[2016-10-28] MEDS ORDERED: PROCHLORPERAZINE 10MG TABLET PO PRN (12:00)
[2016-10-28] MEDS ORDERED: ONDANSETRON 8 MG TABLET PO PRN (12:00)
[2016-10-28] MEDS ORDERED: ACYC-114 PO (12:12)
[2016-10-28] MEDS ORDERED: FLUC200T4 PO (12:12)
[2016-10-28] MEDS ORDERED: CIPR500T87 PO (12:12)
[2016-10-28] MEDS: FLUCONAZOLE 200 MG TABLET PO SCH (13:05)
[2016-10-28] MEDS: CIPROFLOXACIN 500 MG TABLET PO SCH ×2 (13:05→20:20)
[2016-10-28] MEDS: ACYCLOVIR 200 MG CAPSULE PO SCH ×2 (13:06→20:21)
[2016-10-28 13:27] VITALS: BP 114/68
[2016-10-28] MEDS: ENOXAPARIN 40 MG/0.4 ML SQ SCH (17:17)
[2016-10-28 19:29] VITALS: BP 107/62
[2016-10-28] MEDS: ONDANSETRON 16 MG, DEXAMETHASONE 10 MG in SODIUM CHLORIDE 0.9% 50 ML IVPB SCH (20:20)
[2016-10-28] MEDS: NICOTINE 21 MG/24 HR PATCH.TD24 TD SCH (20:21)
[2016-10-29 02:00] VITALS: BP 119/69
[2016-10-29] MEDS: predniSOLONE OPHTH SUSP 1%, 5ML EACHEYE SCH ×6 (02:07→21:09)
[2016-10-29] MEDS: SODIUM CHLORIDE 0.9% 1,000 ML IV SCH ×3 (04:51→21:08)
[2016-10-29 05:57] LABS: HEMATOCRIT 25.6 % (39.2-51.8); HEMOGLOBIN 8.7 g/dL (13.7-18.0); WHITE BLOOD COUNT 4.9 x10^3/uL (3.4-10)
[2016-10-29 06:43] LABS: ASPARTATE AMINO TRANSFERASE 11 U/L (15-37); BLOOD UREA NITROGEN 7 mg/dL (7-18)
[2016-10-29 07:21] VITALS: BP 125/72
[2016-10-29] MEDS: ACYCLOVIR 200 MG CAPSULE PO SCH ×2 (08:44→21:08)
[2016-10-29] MEDS: CIPROFLOXACIN 500 MG TABLET PO SCH ×2 (08:44→21:08)
[2016-10-29] MEDS: FLUCONAZOLE 200 MG TABLET PO SCH (08:44)
[2016-10-29 14:21] VITALS: BP 129/96
[2016-10-29] MEDS: ENOXAPARIN 40 MG/0.4 ML SQ SCH (18:10)
[2016-10-29 18:40] VITALS: BP 110/72
[2016-10-29] MEDS: NICOTINE 21 MG/24 HR PATCH.TD24 TD SCH (21:08)
[2016-10-29] MEDS: ONDANSETRON 16 MG, DEXAMETHASONE 10 MG in SODIUM CHLORIDE 0.9% 50 ML IVPB SCH (21:08)
[2016-10-29] MEDS: SODIUM CHLORIDE 0.9% IV SCH (21:55)
[2016-10-29] MEDS: CYTARABINE IV SCH (21:55)
[2016-10-30] MEDS: predniSOLONE OPHTH SUSP 1%, 5ML EACHEYE SCH ×6 (02:25→21:37)
[2016-10-30 03:55] VITALS: BP 130/71
[2016-10-30] MEDS: SODIUM CHLORIDE 0.9% 1,000 ML IV SCH ×3 (04:56→21:38)
[2016-10-30 05:43] LABS: BLOOD UREA NITROGEN 12 mg/dL (7-18)
[2016-10-30 05:47] LABS: HEMATOCRIT 25.4 % (39.2-51.8); HEMOGLOBIN 8.6 g/dL (13.7-18.0); WHITE BLOOD COUNT 4.7 x10^3/uL (3.4-10)
[2016-10-30 05:48] LABS: ASPARTATE AMINO TRANSFERASE 14 U/L (15-37)
[2016-10-30 07:51] VITALS: BP 126/77
[2016-10-30] MEDS ORDERED: FOSAPREPITANT 150 MG in SODIUM CHLORIDE 0.9% 145 ML IV ONE ×2 (08:30→18:00)
[2016-10-30] MEDS: ACYCLOVIR 200 MG CAPSULE PO SCH ×2 (09:18→21:38)
[2016-10-30] MEDS: FLUCONAZOLE 200 MG TABLET PO SCH (09:19)
[2016-10-30] MEDS: CIPROFLOXACIN 500 MG TABLET PO SCH ×2 (09:19→21:38)
[2016-10-30] MEDS: CYTARABINE IV SCH (09:33)
[2016-10-30] MEDS: SODIUM CHLORIDE 0.9% IV SCH (09:33)
[2016-10-30 13:36] VITALS: BP 143/86
[2016-10-30] MEDS: ENOXAPARIN 40 MG/0.4 ML SQ SCH (17:23)
[2016-10-30 19:21] VITALS: BP 102/61
[2016-10-30] MEDS: ONDANSETRON 16 MG, DEXAMETHASONE 10 MG in SODIUM CHLORIDE 0.9% 50 ML IVPB SCH (21:38)
[2016-10-30] MEDS: NICOTINE 21 MG/24 HR PATCH.TD24 TD SCH (21:38)
[2016-10-31] MEDS: predniSOLONE OPHTH SUSP 1%, 5ML EACHEYE SCH ×6 (02:11→23:12)
[2016-10-31 05:29] VITALS: BP 123/68
[2016-10-31] MEDS: SODIUM CHLORIDE 0.9% 1,000 ML IV SCH ×3 (05:31→19:55)
[2016-10-31 06:10] LABS: HEMATOCRIT 24.5 % (39.2-51.8); HEMOGLOBIN 8.4 g/dL (13.7-18.0); WHITE BLOOD COUNT 4.5 x10^3/uL (3.4-10)
[2016-10-31 06:21] LABS: ASPARTATE AMINO TRANSFERASE 14 U/L (15-37); BLOOD UREA NITROGEN 13 mg/dL (7-18)
[2016-10-31 06:48] LABS: DIFF TOTAL CELLS COUNTED 100 CELL DIFF
[2016-10-31 06:55] LABS: VERIFY COUNTS? YES
[2016-10-31 06:56] LABS: ANISOCYTOSIS 1+; OVALOCYTES 1+; POIKILOCYTOSIS 1+; SCHISTOCYTES 1+
[2016-10-31 07:03] VITALS: BP 137/73
[2016-10-31] MEDS: CIPROFLOXACIN 500 MG TABLET PO SCH ×2 (07:26→20:09)
[2016-10-31] MEDS: FLUCONAZOLE 200 MG TABLET PO SCH (07:26)
[2016-10-31] MEDS: ACYCLOVIR 200 MG CAPSULE PO SCH ×2 (07:26→20:09)
[2016-10-31 14:00] VITALS: BP 126/66
[2016-10-31] MEDS: ENOXAPARIN 40 MG/0.4 ML SQ SCH (17:37)
[2016-10-31] MEDS: ONDANSETRON 16 MG, DEXAMETHASONE 10 MG in SODIUM CHLORIDE 0.9% 50 ML IVPB SCH (18:39)
[2016-10-31 19:07] VITALS: BP 125/75
[2016-10-31] MEDS: SODIUM CHLORIDE 0.9% IV SCH (19:55)
[2016-10-31] MEDS: CYTARABINE IV SCH (19:55)
[2016-10-31] MEDS: NICOTINE 21 MG/24 HR PATCH.TD24 TD SCH (20:09)
[2016-10-31] MEDS ORDERED: SODIUM CHLORIDE 0.9% IV SCH (21:00)
[2016-10-31] MEDS ORDERED: CYTARABINE IV SCH (21:00)
[2016-11-01] MEDS: predniSOLONE OPHTH SUSP 1%, 5ML EACHEYE SCH ×3 (02:08→10:33)
[2016-11-01] MEDS: SODIUM CHLORIDE 0.9% 1,000 ML IV SCH (03:50)
[2016-11-01 03:59] VITALS: BP 121/61
[2016-11-01 04:20] LABS: HEMATOCRIT 23.5 % (39.2-51.8); WHITE BLOOD COUNT 4.4 x10^3/uL (3.4-10)
[2016-11-01 04:25] LABS: ASPARTATE AMINO TRANSFERASE 13 U/L (15-37); BLOOD UREA NITROGEN 15 mg/dL (7-18)
[2016-11-01] MEDS: ACYCLOVIR 200 MG CAPSULE PO SCH (07:31)
[2016-11-01] MEDS: CIPROFLOXACIN 500 MG TABLET PO SCH (07:31)
[2016-11-01] MEDS: FLUCONAZOLE 200 MG TABLET PO SCH (07:32)
[2016-11-01] MEDS: CYTARABINE IV SCH (08:11)
[2016-11-01] MEDS: SODIUM CHLORIDE 0.9% IV SCH (08:11)
[2016-11-01] MEDS ORDERED: FOLI-17 PO (08:18)
[2016-11-01 08:20] VITALS: BP 147/79
[2016-11-01] MEDS ORDERED: MULT-658 PO (08:20)
[2016-11-01] MEDS ORDERED: FOLIC ACID 1 MG TABLET PO SCH (09:00)
== END 2016-11-01 12:00 | disposition home or self-care (01) | DRG 836 ==
LOC: 3NW 16:29
PROVIDERS: ADMIT Internal Medicine Hematology & Oncology; ATTEND Internal Medicine Hematology & Oncology
DX: C92.00 Acute myeloblastic leukemia, not having achieved remission (principal); F17.210 Nicotine dependence, cigarettes, uncomplicated; Z88.0 Allergy status to penicillin; Z51.11 Encounter for antineoplastic chemotherapy; Z88.1 Allergy status to other antibiotic agents; Z71.6 Tobacco abuse counseling
CPT/HCPCS: 36415; 80053; 82607; 82746; 85025; J1100; J1453; J1650; J2405; J9100; Q0162; Q0164; J7030; J7050

== ENCOUNTER 2016-12-08 07:45 | Day surgery (SDC) | payer OTHER ==
[~2016-12-08] VITALS: Ht 177.8 cm; Wt 79.3 kg
[~2016-12-08 07:45] MED LIST changes: +CIPR500T87 PO; +FLUC200T4 PO; +FOLI-17 PO; +MULT-658 PO
[2016-12-08 08:19] VITALS: BP 121/84
[2016-12-08] MEDS ORDERED: LIDOCAINE 1%, 20ML ONE (08:37)
[2016-12-08] MEDS ORDERED: FENTANYL PF 100 MCG/2ML ONE (08:50)
[2016-12-08] MEDS ORDERED: MIDAZOLAM 1 MG/ML, 5ML ONE (08:50)
[2016-12-08] MEDS ORDERED: NALOXONE 1 MG/ML, 2ML ONE (08:51)
[2016-12-08] MEDS ORDERED: FLUMAZENIL 0.1 MG/1 ML, 5ML ONE (08:51)
[2016-12-08] MEDS ORDERED: SODIUM CHLORIDE 0.9% 1,000 ML IV SCH (09:00)
[2016-12-08 09:14] LABS: HEMATOCRIT 33.2 % (39.2-51.8); HEMOGLOBIN 11.2 g/dL (13.7-18.0); WHITE BLOOD COUNT 5.4 x10^3/uL (3.4-10)
== END 2016-12-08 12:35 ==
LOC: OUT 07:45
PROVIDERS: ATTEND Internal Medicine Hematology & Oncology
DX: C92.00 Acute myeloblastic leukemia, not having achieved remission (principal); F19.90 Other psychoactive substance use, unspecified, uncomplicated; Z87.891 Personal history of nicotine dependence
CPT/HCPCS: 36415; 38221; 77012; 85025; 85097; 88237; 88264; 88280; 88305; 88311; 88313; 99156; 99157; G0364; J2250; J3010; J3490; J2310

== ENCOUNTER 2017-03-26 08:58 | Day surgery (SDC) | payer OTHER ==
[~2017-03-26] VITALS: Ht 177.8 cm; Wt 84.0 kg
[2017-03-26] MEDS ORDERED: SODIUM CHLORIDE 0.9% 1,000 ML IV SCH ×2 (09:15→09:36)
[2017-03-26 09:26] VITALS: BP 136/78
[2017-03-26] MEDS ORDERED: LIDOCAINE 1%, 20ML ONE (09:26)
[2017-03-26] MEDS ORDERED: MIDAZOLAM 1 MG/ML, 2ML ONE (10:06)
[2017-03-26] MEDS ORDERED: FENTANYL PF 100 MCG/2ML ONE (10:06)
[2017-03-26] MEDS ORDERED: FLUMAZENIL 0.1 MG/1 ML, 5ML ONE (10:07)
[2017-03-26] MEDS ORDERED: NALOXONE 1 MG/ML, 2ML ONE (10:07)
[2017-03-26 10:22] LABS: MD YES; MEAN CORPUSCULAR HEMOGLOBIN 32.7 pg (27.5-34.5); MEAN CORPUSCULAR HGB CONC 34.3 g/dL (33.2-36.2); MEAN CORPUSCULAR VOLUME 95.5 fL (81-97); MEAN PLATELET VOLUME 8.3 fL (7.4-10.4); PLATELET COUNT 58 x10^3/uL (130-400); RED BLOOD COUNT 4.87 x10^6/uL (4.38-5.82); RED CELL DISTRIBUTION WIDTH 13.8 % (9.4-14.8)
[2017-03-26 10:24] LABS: ANISOCYTOSIS 1+; BAND#(MANUAL) 0.34 x10^3/uL; BANDS%(MANUAL) 7 % (0-7); EOS#(MANUAL) 0.05 x10^3/uL (0.0-0.4); EOS% (MANUAL) 1 % (1-7); LYMPH#(MANUAL) 0.74 x10^3/uL (1-3.4); LYMPHS% (MANUAL) 15 % (22-44); MONOS#(MANUAL) 0.15 x10^3/uL (0.3-2.7); MONOS% (MANUAL) 3 % (2-9); REACTIVE LYMPHS # (MANUAL) 0.15 x10^3/uL (0-0); REACTIVE LYMPHS % (MANUAL) 3 % (0-0); SEG#(MANUAL) 3.48 x10^3/uL (1.8-6.8); SEGS% (MANUAL) 71 % (42-75)
[2017-03-26 10:25] LABS: <PLATELET ESTIMATE> DECREASED; LARGE PLATELETS 1+
== END 2017-03-26 13:45 | disposition home or self-care (01) ==
LOC: OUT 08:58
PROVIDERS: ATTEND Internal Medicine Hematology & Oncology
DX: C92.00 Acute myeloblastic leukemia, not having achieved remission (principal); Z88.1 Allergy status to other antibiotic agents; Z88.0 Allergy status to penicillin
CPT/HCPCS: 36415; 38222; 77012; 85025; 88307; 88311; 99156; J2250; J3010; J3490; J7030; 88305; 88341; 88342; 99157; G0461; J2310

== ENCOUNTER 2017-04-17 08:01 | Inpatient (IN) | payer OTHER ==
[~2017-04-17] VITALS: Ht 177.8 cm; Wt 73.7 kg
[2017-04-17 09:16] LABS: ALANINE AMINOTRANSFERASE 73 U/L (12-78); ALBUMIN 3.3 g/dL (3.4-5.0); ANION GAP 6 mmol/L (5-15); CALCIUM 8.4 mg/dL (8.5-10.1); CHLORIDE 108 mmol/L (98-107); CREATININE 1.05 mg/dL (0.7-1.3)
[2017-04-17 09:18] LABS: MEAN CORPUSCULAR HEMOGLOBIN 32.6 pg (27.5-34.5); MEAN CORPUSCULAR HGB CONC 35.2 g/dL (33.2-36.2); MEAN CORPUSCULAR VOLUME 92.5 fL (81-97); MEAN PLATELET VOLUME 8.9 fL (7.4-10.4); RED BLOOD COUNT 4.07 x10^6/uL (4.38-5.82); RED CELL DISTRIBUTION WIDTH 13.6 % (9.4-14.8)
[2017-04-17 09:19] LABS: ALKALINE PHOSPHATASE 74 U/L (45-117); BILIRUBIN,TOTAL 0.4 mg/dL (0.2-1.0); TOTAL PROTEIN 9.3 g/dL (6.4-8.2)
[2017-04-17 09:53] LABS: PLATELET COUNT 12 x10^3/uL (130-400)
[2017-04-17 10:36] LABS: MD YES
[2017-04-17 10:38] LABS: <PLATELET ESTIMATE> DECREASED; <PLT MORPHOLOGY> NORMAL PLT MORPH; ANISOCYTOSIS 1+; HYPOCHROMIA 1+; LYMPH#(MANUAL) 0.22 x10^3/uL (1-3.4); LYMPHS% (MANUAL) 20 % (22-44); METAMYELOCYTES# (MANUAL) 0.02 x10^3/uL (0-0); METAMYELOCYTES% (MANUAL) 2 % (0-1); MONOS#(MANUAL) 0.02 x10^3/uL (0.3-2.7); MONOS% (MANUAL) 2 % (2-9); SEG#(MANUAL) 0.84 x10^3/uL (1.8-6.8); SEGS% (MANUAL) 76 % (42-75)
[2017-04-17 11:00] LABS: D-DIMER (DIC) 1.32 ug/mlFEU (0.00-0.52); PROTIME 9.2 Seconds (9.6-11.5)
[2017-04-17 11:05] LABS: INTERNATIONAL NORMALIZED RATIO 0.9 (0.93-1.1); PROTHROMBIN TIME 9.2 Seconds (9.6-11.5)
[2017-04-17 11:23] VITALS: BP 118/78
[2017-04-17] MEDS: ACETAMINOPHEN 325 MG TABLET PO PRN (12:27)
[2017-04-17] MEDS: NICOTINE 21 MG/24 HR PATCH.TD24 TD SCH (12:28)
[2017-04-17 14:02] VITALS: BP 126/71
[2017-04-17 19:26] VITALS: BP 123/79
[2017-04-18 01:15] VITALS: BP 111/72
[2017-04-18 05:15] LABS: D-DIMER (DIC) 0.78 ug/mlFEU (0.00-0.52); PROTIME 9.7 Seconds (9.6-11.5)
[2017-04-18 05:17] LABS: MEAN CORPUSCULAR HEMOGLOBIN 32.2 pg (27.5-34.5); MEAN CORPUSCULAR VOLUME 92.1 fL (81-97); MEAN PLATELET VOLUME 7.6 fL (7.4-10.4); RED BLOOD COUNT 3.81 x10^6/uL (4.38-5.82); RED CELL DISTRIBUTION WIDTH 13.1 % (9.4-14.8)
[2017-04-18 05:20] LABS: CHLORIDE 109 mmol/L (98-107)
[2017-04-18 05:25] LABS: PLATELET COUNT 12 x10^3/uL (130-400)
[2017-04-18 05:27] LABS: ALANINE AMINOTRANSFERASE 61 U/L (12-78); ALBUMIN 2.9 g/dL (3.4-5.0); ALKALINE PHOSPHATASE 64 U/L (45-117); ANION GAP 8 mmol/L (5-15); BILIRUBIN,TOTAL 0.6 mg/dL (0.2-1.0); CALCIUM 8.5 mg/dL (8.5-10.1); CREATININE 0.97 mg/dL (0.7-1.3); TOTAL PROTEIN 8.3 g/dL (6.4-8.2)
[2017-04-18 05:47] LABS: MD YES
[2017-04-18 05:52] LABS: ANISOCYTOSIS 1+; BAND#(MANUAL) 0.02 x10^3/uL; BANDS%(MANUAL) 2 % (0-7); LYMPH#(MANUAL) 0.48 x10^3/uL (1-3.4); LYMPHS% (MANUAL) 48 % (22-44); MONOS#(MANUAL) 0.01 x10^3/uL (0.3-2.7); MONOS% (MANUAL) 1 % (2-9); MYELOCYTES# (MANUAL) 0.01 x10^3/uL (0-0); MYELOCYTES% (MANUAL) 1 % (0-0); REACTIVE LYMPHS # (MANUAL) 0.08 x10^3/uL (0-0); REACTIVE LYMPHS % (MANUAL) 8 % (0-0); SEGS% (MANUAL) 40 % (42-75)
[2017-04-18 05:53] LABS: <PLATELET ESTIMATE> DECREASED; <PLT MORPHOLOGY> QNS FOR PLT MORPH
[2017-04-18 07:00] VITALS: BP 115/71
[2017-04-18] MEDS: NICOTINE 21 MG/24 HR PATCH.TD24 TD SCH (12:35)
[2017-04-18 12:36] VITALS: BP 119/73
[2017-04-18 20:00] VITALS: BP 125/80
[2017-04-19] VITALS (7 sets, daily range): BP systolic 98–121; BP diastolic 59–82
[2017-04-19 04:36] LABS: CHLORIDE 107 mmol/L (98-107)
[2017-04-19 04:37] LABS: MEAN CORPUSCULAR HEMOGLOBIN 32.3 pg (27.5-34.5); MEAN CORPUSCULAR HGB CONC 35.2 g/dL (33.2-36.2); MEAN CORPUSCULAR VOLUME 91.7 fL (81-97); RED CELL DISTRIBUTION WIDTH 13.5 % (9.4-14.8)
[2017-04-19 04:43] LABS: ALANINE AMINOTRANSFERASE 66 U/L (12-78); ALKALINE PHOSPHATASE 69 U/L (45-117); ANION GAP 7 mmol/L (5-15); BILIRUBIN,TOTAL 0.7 mg/dL (0.2-1.0); CALCIUM 8.5 mg/dL (8.5-10.1); CREATININE 1.03 mg/dL (0.7-1.3); TOTAL PROTEIN 8.2 g/dL (6.4-8.2)
[2017-04-19 05:44] LABS: MD YES
[2017-04-19 05:49] LABS: <PLATELET ESTIMATE> DECREASED; <PLT MORPHOLOGY> NORMAL PLT MORPH; BAND#(MANUAL) 0.02 x10^3/uL; BANDS%(MANUAL) 2 % (0-7); LYMPH#(MANUAL) 0.77 x10^3/uL (1-3.4); LYMPHS% (MANUAL) 70 % (22-44); MEAN PLATELET VOLUME 10.6 fL (7.4-10.4); METAMYELOCYTES# (MANUAL) 0.01 x10^3/uL (0-0); METAMYELOCYTES% (MANUAL) 1 % (0-1); MONOS#(MANUAL) 0.06 x10^3/uL (0.3-2.7); MONOS% (MANUAL) 5 % (2-9); MYELOCYTES# (MANUAL) 0.01 x10^3/uL (0-0); MYELOCYTES% (MANUAL) 1 % (0-0); NRBC % (MANUAL) 1 % (0-1); REACTIVE LYMPHS # (MANUAL) 0.01 x10^3/uL (0-0); REACTIVE LYMPHS % (MANUAL) 1 % (0-0); SEG#(MANUAL) 0.22 x10^3/uL (1.8-6.8); SEGS% (MANUAL) 20 % (42-75)
[2017-04-19 05:50] LABS: POLYCHROMASIA 1+
[2017-04-19 05:55] LABS: PLATELET COUNT 9 x10^3/uL (130-400)
[2017-04-19] MEDS: ACETAMINOPHEN 325 MG TABLET PO PRN (10:29)
[2017-04-19] MEDS: DIPHENHYDRAMINE 25 MG CAPSULE PO PRN (10:29)
[2017-04-19] MEDS: NICOTINE 21 MG/24 HR PATCH.TD24 TD SCH (11:26)
[2017-04-20 04:31] VITALS: BP 110/75
[2017-04-20 04:49] LABS: MEAN CORPUSCULAR HEMOGLOBIN 32.5 pg (27.5-34.5); MEAN CORPUSCULAR HGB CONC 35.3 g/dL (33.2-36.2); MEAN CORPUSCULAR VOLUME 92.2 fL (81-97); MEAN PLATELET VOLUME 8.4 fL (7.4-10.4); RED BLOOD COUNT 4.01 x10^6/uL (4.38-5.82); RED CELL DISTRIBUTION WIDTH 13.5 % (9.4-14.8)
[2017-04-20 04:51] LABS: PLATELET COUNT 27 x10^3/uL (130-400)
[2017-04-20 04:52] LABS: ALANINE AMINOTRANSFERASE 62 U/L (12-78); ALBUMIN 3.1 g/dL (3.4-5.0); ANION GAP 7 mmol/L (5-15); CALCIUM 8.9 mg/dL (8.5-10.1); CHLORIDE 108 mmol/L (98-107)
[2017-04-20 04:55] LABS: ALKALINE PHOSPHATASE 69 U/L (45-117); BILIRUBIN,TOTAL 0.5 mg/dL (0.2-1.0); CREATININE 1.04 mg/dL (0.7-1.3); TOTAL PROTEIN 8.4 g/dL (6.4-8.2)
[2017-04-20 05:43] LABS: MD YES
[2017-04-20 05:48] LABS: BAND#(MANUAL) 0.02 x10^3/uL; BANDS%(MANUAL) 2 % (0-7); LYMPH#(MANUAL) 0.86 x10^3/uL (1-3.4); LYMPHS% (MANUAL) 72 % (22-44); MONOS#(MANUAL) 0.02 x10^3/uL (0.3-2.7); MONOS% (MANUAL) 2 % (2-9); NRBC % (MANUAL) 1 % (0-1); REACTIVE LYMPHS # (MANUAL) 0.01 x10^3/uL (0-0); REACTIVE LYMPHS % (MANUAL) 1 % (0-0); SEG#(MANUAL) 0.28 x10^3/uL (1.8-6.8); SEGS% (MANUAL) 23 % (42-75)
[2017-04-20 05:50] LABS: <PLATELET ESTIMATE> DECREASED; ANISOCYTOSIS 1+
[2017-04-20 05:51] LABS: <PLT MORPHOLOGY> NORMAL PLT MORPH
[2017-04-20 06:37] VITALS: BP 122/72
[2017-04-20] MEDS: NICOTINE 21 MG/24 HR PATCH.TD24 TD SCH (11:30)
[2017-04-20 12:32] VITALS: BP 119/76
[2017-04-20 19:12] VITALS: BP 103/69
[2017-04-21] VITALS (7 sets, daily range): BP systolic 110–121; BP diastolic 75–80
[2017-04-21 04:25] LABS: MEAN CORPUSCULAR HEMOGLOBIN 32.2 pg (27.5-34.5); MEAN PLATELET VOLUME 8.1 fL (7.4-10.4); RED BLOOD COUNT 4.18 x10^6/uL (4.38-5.82); RED CELL DISTRIBUTION WIDTH 13.2 % (9.4-14.8)
[2017-04-21 04:26] LABS: PLATELET COUNT 19 x10^3/uL (130-400)
[2017-04-21 04:29] LABS: ALANINE AMINOTRANSFERASE 68 U/L (12-78); ALBUMIN 3.2 g/dL (3.4-5.0); ANION GAP 8 mmol/L (5-15); CALCIUM 8.6 mg/dL (8.5-10.1); CHLORIDE 105 mmol/L (98-107); CREATININE 1.07 mg/dL (0.7-1.3)
[2017-04-21 04:31] LABS: ALKALINE PHOSPHATASE 74 U/L (45-117); BILIRUBIN,TOTAL 0.4 mg/dL (0.2-1.0); TOTAL PROTEIN 8.3 g/dL (6.4-8.2)
[2017-04-21 05:46] LABS: MD YES
[2017-04-21 05:51] LABS: BAND#(MANUAL) 0.01 x10^3/uL; BANDS%(MANUAL) 1 % (0-7); LYMPH#(MANUAL) 0.92 x10^3/uL (1-3.4); LYMPHS% (MANUAL) 77 % (22-44); MONOS#(MANUAL) 0.02 x10^3/uL (0.3-2.7); MONOS% (MANUAL) 2 % (2-9); NRBC % (MANUAL) 3 % (0-1); REACTIVE LYMPHS # (MANUAL) 0.01 x10^3/uL (0-0); REACTIVE LYMPHS % (MANUAL) 1 % (0-0); SEG#(MANUAL) 0.23 x10^3/uL (1.8-6.8); SEGS% (MANUAL) 19 % (42-75)
[2017-04-21 05:52] LABS: <PLATELET ESTIMATE> DECREASED; <PLT MORPHOLOGY> NORMAL PLT MORPH; ANISOCYTOSIS 1+
[2017-04-21] MEDS: NICOTINE 21 MG/24 HR PATCH.TD24 TD SCH (11:49)
[2017-04-21] MEDS: DIPHENHYDRAMINE 25 MG CAPSULE PO PRN (17:15)
[2017-04-21] MEDS: ACETAMINOPHEN 325 MG TABLET PO PRN (17:16)
[2017-04-22 02:00] VITALS: BP 110/73
[2017-04-22 05:05] LABS: MEAN CORPUSCULAR HEMOGLOBIN 32.2 pg (27.5-34.5); MEAN CORPUSCULAR HGB CONC 35.3 g/dL (33.2-36.2); MEAN CORPUSCULAR VOLUME 91.1 fL (81-97); RED BLOOD COUNT 4.06 x10^6/uL (4.38-5.82); RED CELL DISTRIBUTION WIDTH 13.1 % (9.4-14.8)
[2017-04-22 05:08] LABS: CHLORIDE 106 mmol/L (98-107)
[2017-04-22 05:17] LABS: ALANINE AMINOTRANSFERASE 74 U/L (12-78); ALBUMIN 3.3 g/dL (3.4-5.0); ALKALINE PHOSPHATASE 76 U/L (45-117); ANION GAP 8 mmol/L (5-15); BILIRUBIN,TOTAL 0.6 mg/dL (0.2-1.0); CREATININE 1.08 mg/dL (0.7-1.3); TOTAL PROTEIN 8.4 g/dL (6.4-8.2)
[2017-04-22 05:40] LABS: MD YES
[2017-04-22 05:45] LABS: MEAN PLATELET VOLUME 8.3 fL (7.4-10.4)
[2017-04-22 05:47] LABS: BAND#(MANUAL) 0.05 x10^3/uL; BANDS%(MANUAL) 5 % (0-7); LYMPH#(MANUAL) 0.46 x10^3/uL (1-3.4); LYMPHS% (MANUAL) 51 % (22-44); MONOS#(MANUAL) 0.02 x10^3/uL (0.3-2.7); MONOS% (MANUAL) 2 % (2-9); NRBC % (MANUAL) 3 % (0-1); PLATELET COUNT 35 x10^3/uL (130-400); REACTIVE LYMPHS # (MANUAL) 0.01 x10^3/uL (0-0); REACTIVE LYMPHS % (MANUAL) 1 % (0-0); SEG#(MANUAL) 0.37 x10^3/uL (1.8-6.8); SEGS% (MANUAL) 41 % (42-75)
[2017-04-22 05:48] LABS: <PLATELET ESTIMATE> DECREASED; <PLT MORPHOLOGY> NORMAL PLT MORPH; ANISOCYTOSIS 1+
[2017-04-22 07:43] VITALS: BP 103/70
[2017-04-22] MEDS ORDERED: MIDAZOLAM 1 MG/ML, 2ML ONE (08:33)
[2017-04-22] MEDS ORDERED: NALOXONE 1 MG/ML, 2ML ONE (08:33)
[2017-04-22] MEDS ORDERED: FENTANYL PF 100 MCG/2ML ONE (08:33)
[2017-04-22] MEDS ORDERED: FLUMAZENIL 0.1 MG/1 ML, 5ML ONE (08:33)
[2017-04-22] MEDS ORDERED: LIDOCAINE 1%, 20ML ONE (08:34)
[2017-04-22 12:10] VITALS: BP 111/77
[2017-04-22] MEDS: NICOTINE 21 MG/24 HR PATCH.TD24 TD SCH (12:39)
[2017-04-22] MEDS: ACETAMINOPHEN 325 MG TABLET PO PRN (12:39)
== END 2017-04-22 16:50 | disposition home or self-care (01) | DRG 835 ==
LOC: ED 08:51 → EDIP 10:07 → 3NW 10:55
PROVIDERS: ADMIT Hospitalist; ATTEND Hospitalist
PROC: 30233R1 Transfusion of Nonautologous Platelets into Peripheral Vein, Percutaneous Approach (ICD-10-PCS; principal; 2017-04-19)
PROC: 07DS3ZX Extraction of Vertebral Bone Marrow, Percutaneous Approach, Diagnostic (ICD-10-PCS; 2017-04-22)
DX: C92.00 Acute myeloblastic leukemia, not having achieved remission (principal); D61.818 Other pancytopenia; E44.1 Mild protein-calorie malnutrition; R16.1 Splenomegaly, not elsewhere classified; F17.210 Nicotine dependence, cigarettes, uncomplicated; Z68.23 Body mass index [BMI] 23.0-23.9, adult; Z88.0 Allergy status to penicillin; Z88.1 Allergy status to other antibiotic agents; Z82.49 Family history of ischemic heart disease and other diseases of the circulatory system; Z80.9 Family history of malignant neoplasm, unspecified
CPT/HCPCS: 36415; 36430; 38222; 77002; 80053; 83735; 84100; 85025; 85049; 85060; 85097; 85379; 85384; 85610; 85730; 87040; 88237; 88264; 88280; 88305; 88311; 88313; 88341; 88342; 99156; 99157; J2250; J3010; J3490; G0461; J2310; P9037; Q0163

== ENCOUNTER → 2017-06-30 | Outpatient (CLI) | payer OTHER | END | disposition home or self-care (01) | LOC: RAD 16:14 | PROVIDERS: ATTEND Internal Medicine Hematology & Oncology | DX: Z51.89 Encounter for other specified aftercare (principal); R07.9 Chest pain, unspecified; C92.00 Acute myeloblastic leukemia, not having achieved remission | CPT/HCPCS: 71046 ==

== ENCOUNTER → 2017-07-01 | Outpatient (CLI) | payer OTHER ==
[~2017-07-01] MED LIST changes: +OMNIPAQUE 350 MG/ML, 100ML BOTTLE ONE
== END | disposition home or self-care (01) ==
LOC: RAD 13:01
PROVIDERS: ATTEND Internal Medicine Hematology & Oncology
DX: R16.1 Splenomegaly, not elsewhere classified (principal); K22.8 Other specified diseases of esophagus; D69.6 Thrombocytopenia, unspecified; C92.00 Acute myeloblastic leukemia, not having achieved remission
CPT/HCPCS: 74160; Q9967

== ENCOUNTER 2017-08-05 16:23 | Inpatient (IN) | payer OTHER ==
[~2017-08-05] VITALS: Ht 177.8 cm; Wt 79.8 kg
[~2017-08-05 16:23] MED LIST changes: -OMNIPAQUE 350 MG/ML, 100ML BOTTLE ONE
[2017-08-05 16:47] VITALS: BP 125/71
[2017-08-05] MEDS ORDERED: ACYC-57 PO (16:52)
[2017-08-05] MEDS ORDERED: CIPR500T3 PO (16:54)
[2017-08-05] MEDS ORDERED: VANCOMYCIN PER PHARMACY MC PRN (18:00)
[2017-08-05] MEDS ORDERED: POLYETHYLENE GLYCOL 17 GM PACKET PO PRN (18:00)
[2017-08-05] MEDS ORDERED: ENALAPRILAT 1.25 MG/ML, 2ML IVPush PRN (18:00)
[2017-08-05] MEDS ORDERED: METOCLOPRAMIDE 5 MG/ML, 2ML IVPush PRN (18:00)
[2017-08-05] MEDS ORDERED: DOCUSATE 100 MG CAPSULE PO PRN (18:00)
[2017-08-05] MEDS ORDERED: BISACODYL 10 MG SUPP PR PRN (18:00)
[2017-08-05] MEDS ORDERED: ACETAMINOPHEN 325 MG TABLET PO PRN (18:00)
[2017-08-05] MEDS ORDERED: PHARMACOKINETIC MONITORING MC PRN (18:30)
[2017-08-05] MEDS ORDERED: PHARMACOKINETIC CONSULTATION MC ONE (18:30)
[2017-08-05] MEDS: HYDROcodone/APAP 5/325 TABLET PO PRN ×2 (18:39→22:22)
[2017-08-05 19:17] LABS: ALANINE AMINOTRANSFERASE 26 U/L (12-78); ALBUMIN 3.9 g/dL (3.4-5.0); ANION GAP 6 mmol/L (5-15); CALCIUM 8.6 mg/dL (8.5-10.1); CHLORIDE 107 mmol/L (98-107); CREATININE 0.81 mg/dL (0.7-1.3)
[2017-08-05 19:19] LABS: ALKALINE PHOSPHATASE 98 U/L (45-117); BILIRUBIN,TOTAL 0.9 mg/dL (0.2-1.0); TOTAL PROTEIN 6.9 g/dL (6.4-8.2)
[2017-08-05 19:28] VITALS: BP 110/70
[2017-08-05 19:32] LABS: MEAN CORPUSCULAR HEMOGLOBIN 30.8 pg (27.5-34.5); MEAN CORPUSCULAR HGB CONC 34.8 g/dL (33.2-36.2); MEAN CORPUSCULAR VOLUME 88.5 fL (81-97); MEAN PLATELET VOLUME 8.7 fL (7.4-10.4); RED BLOOD COUNT 2.54 x10^6/uL (4.38-5.82)
[2017-08-05 19:35] LABS: PLATELET COUNT 28 x10^3/uL (130-400)
[2017-08-05 19:36] LABS: HEMOGRAM NOTE RECHECKED
[2017-08-05 19:37] LABS: MD YES
[2017-08-05 19:43] LABS: <RBC MORPHOLOGY> NORMAL; LYMPHS% (MANUAL) 88 % (22-44); NRBC % (MANUAL) 1 % (0-1); OTHER CELLS # (MANUAL) 0.03 x10^3/uL (0-0); OTHER CELLS % (MANUAL) 4 % (0-0); SEG#(MANUAL) 0.06 x10^3/uL (1.8-6.8); SEGS% (MANUAL) 8 % (42-75)
[2017-08-05 19:44] LABS: <PLATELET ESTIMATE> DECREASED; <PLT MORPHOLOGY> NORMAL PLT MORPH
[2017-08-05] MEDS: DIPHENHYDRAMINE 25 MG CAPSULE PO PRN (19:49)
[2017-08-05 19:55] LABS: TOXIC GRAN 1+
[2017-08-05] MEDS: ACYCLOVIR IV SCH (20:16)
[2017-08-05] MEDS: SODIUM CHLORIDE 0.9% IV SCH (20:16)
[2017-08-05] MEDS: FAMOTIDINE 20 MG TABLET PO SCH (21:41)
[2017-08-05] MEDS: CIPROFLOXACIN 750 MG TABLET PO SCH (21:43)
[2017-08-05] MEDS: VANCOMYCIN 1,600 MG in SODIUM CHLORIDE 0.9% 250 ML IV SCH (22:23)
[2017-08-06] MEDS: HYDROcodone/APAP 5/325 TABLET PO PRN ×5 (03:36→22:30)
[2017-08-06] MEDS: DIPHENHYDRAMINE 25 MG CAPSULE PO PRN ×3 (03:36→19:37)
[2017-08-06] MEDS: ACYCLOVIR IV SCH ×3 (03:39→21:05)
[2017-08-06] MEDS: SODIUM CHLORIDE 0.9% IV SCH ×3 (03:39→21:05)
[2017-08-06 04:47] LABS: CREATININE 0.79 mg/dL (0.7-1.3)
[2017-08-06 04:50] VITALS: BP 119/79
[2017-08-06 08:21] VITALS: BP 106/66
[2017-08-06] MEDS ORDERED: methylPREDNISolone 4mg DOSE PACK ONE (08:47)
[2017-08-06] MEDS: FAMOTIDINE 20 MG TABLET PO SCH ×2 (08:59→21:05)
[2017-08-06] MEDS: CIPROFLOXACIN 750 MG TABLET PO SCH ×2 (09:00→21:05)
[2017-08-06] MEDS ORDERED: methylPREDNISolone 4mg DOSE PACK PO SCH (09:00)
[2017-08-06] MEDS: ONDANSETRON ODT 4 MG PO PRN ×2 (09:05→17:14)
[2017-08-06] MEDS: VANCOMYCIN 1,600 MG in SODIUM CHLORIDE 0.9% 250 ML IV SCH ×2 (11:44→22:30)
[2017-08-06 13:23] VITALS: BP 119/74
[2017-08-06 19:45] VITALS: BP 113/72
[2017-08-06 20:04] LABS: MICROSCOPIC NOT IND
[2017-08-06 20:08] LABS: CULTURE INDICATED? NO
[2017-08-07] MEDS: HYDROcodone/APAP 5/325 TABLET PO PRN ×2 (04:48→09:12)
[2017-08-07] MEDS: ACYCLOVIR IV SCH (04:49)
[2017-08-07] MEDS: SODIUM CHLORIDE 0.9% IV SCH (04:49)
[2017-08-07 05:02] VITALS: BP 116/78
[2017-08-07 06:05] LABS: ANION GAP 6 mmol/L (5-15); CALCIUM 8.6 mg/dL (8.5-10.1); CHLORIDE 108 mmol/L (98-107); CREATININE 0.77 mg/dL (0.7-1.3)
[2017-08-07 06:06] LABS: MEAN CORPUSCULAR HEMOGLOBIN 30.2 pg (27.5-34.5); MEAN CORPUSCULAR HGB CONC 34.5 g/dL (33.2-36.2); MEAN CORPUSCULAR VOLUME 87.5 fL (81-97); MEAN PLATELET VOLUME 8.1 fL (7.4-10.4); RED BLOOD COUNT 2.29 x10^6/uL (4.38-5.82); RED CELL DISTRIBUTION WIDTH 13.1 % (9.4-14.8)
[2017-08-07 06:08] LABS: PLATELET COUNT 23 x10^3/uL (130-400)
[2017-08-07 07:46] LABS: MD YES
[2017-08-07 07:52] LABS: LYMPH#(MANUAL) 0.52 x10^3/uL (1-3.4); NRBC % (MANUAL) 6 % (0-1); SEG#(MANUAL) 0.07 x10^3/uL (1.8-6.8); SEGS% (MANUAL) 12 % (42-75)
[2017-08-07 07:54] LABS: LYMPHS% (MANUAL) 87 % (22-44)
[2017-08-07 07:56] LABS: <PLATELET ESTIMATE> DECREASED; <PLT MORPHOLOGY> NORMAL PLT MORPH; ANISOCYTOSIS 1+
[2017-08-07 08:00] VITALS: BP 111/67
[2017-08-07] MEDS: FAMOTIDINE 20 MG TABLET PO SCH (08:30)
[2017-08-07] MEDS: CIPROFLOXACIN 750 MG TABLET PO SCH (08:30)
[2017-08-07] MEDS: ONDANSETRON ODT 4 MG PO PRN (08:31)
[2017-08-07] MEDS ORDERED: DOCU-131 PO (11:44)
[2017-08-07] MEDS ORDERED: HYDR25TA11 PO (11:44)
[2017-08-07] MEDS ORDERED: FAMO20TA7 PO (11:44)
[2017-08-07] MEDS ORDERED: DIPH25CA61 PO (11:44)
[2017-08-07] MEDS ORDERED: METH4TAB2 PO (11:44)
== END 2017-08-07 12:16 | disposition home or self-care (01) | DRG 811 ==
LOC: 3NW 16:23
PROVIDERS: ADMIT Internal Medicine; ATTEND Internal Medicine
DX: T80.89XA Other complications following infusion, transfusion and therapeutic injection, initial encounter (principal); D61.810 Antineoplastic chemotherapy induced pancytopenia; C92.00 Acute myeloblastic leukemia, not having achieved remission; L29.9 Pruritus, unspecified; K82.4 Cholesterolosis of gallbladder; R50.81 Fever presenting with conditions classified elsewhere; T45.1X5A Adverse effect of antineoplastic and immunosuppressive drugs, initial encounter; Z82.49 Family history of ischemic heart disease and other diseases of the circulatory system; Z87.891 Personal history of nicotine dependence; Y84.8 Other medical procedures as the cause of abnormal reaction of the patient, or of later complication, without mention of misadventure at the time of the procedure; Y92.89 Other specified places as the place of occurrence of the external cause
CPT/HCPCS: 36415; 76700; 80048; 80053; 81003; 82565; 84520; 85025; 87040; J0133; J3370; J7509; Q0162; J2765; J7050; Q0163; Q0177